=== PATIENT | male | born 1960 | race Caucasian/White ===

== ENCOUNTER 2020-10-14 11:28 | Day surgery (SDC) | payer OTHER, SELFPAY ==
[2020-10-08 12:26] VITALS: BMI 36.9
--- NOTE | 2020-10-13 08:27 | HO.ANESPROP2 ---
Documented by User: Jolene Malik 10/13/20 08:27 HPI - Anesthesia Eval Consult details Narrative: 60yo M for Colonoscopy [facility] Past Medical History Medical History Fatty liver HTN (hypertension) Surgical History Surgical History History of umbilical hernia repair Hx laparoscopic cholecystectomy Hx of colonoscopy Social History Social History Are you a primary care management specialist to a significant other at home: No Do you presently have visiting nurse or other home services: No Smoking Status: Current every day smoker Packs Per Day: 0.75 Cigarettes Per Day: 15.0 Smoked in Last 30 Days: Yes Have you been hit, kicked, punched, or otherwise hurt by someone within the past year? If so, by whom?: No Are you DNR?: No Advance Directives: No Advance Directives Information Provided: No Advance Directives on File: No Recently lost weight without trying: No Eating poorly because of decreased appetite: No Nutrition Risks: No Nutritional Risk Meds Allergies Allergy/AdvReac Type Severity Reaction Status Date / Time No Known Allergies Allergy Unverified 10/08/20 12:25 Home Medications Medication Instructions Recorded Confirmed Last Taken Type No Known Home Meds 10/08/20 10/08/20 Unknown History Exam Exam Date and Time: October 13, 2020 0827 Height,Weight and Vital Signs: Height 5 ft 11 in Weight 120.202 kg Assessment and Plan Assessment Anesthesia Assessment: Chart Reviewed Documented by User: Beatrice Pratt 10/14/20 12:43 [facility] Past Medical History Medical History Fatty liver HTN (hypertension) Surgical History Surgical History History of umbilical hernia repair Hx laparoscopic cholecystectomy Hx of colonoscopy Social History Social History Are you a primary care management specialist to a significant other at home: No Do you presently have visiting nurse or other home services: No Smoking Status: Current every day smoker Packs Per Day: 0.75 Cigarettes Per Day: 15.0 Smoked in Last 30 Days: Yes Have you been hit, kicked, punched, or otherwise hurt by someone within the past year? If so, by whom?: No Are you DNR?: No Advance Directives: No Advance Directives Information Provided: No Advance Directives on File: No Recently lost weight without trying: No Eating poorly because of decreased appetite: No Nutrition Risks: No Nutritional Risk Meds Allergies Allergy/AdvReac Type Severity Reaction Status Date / Time No Known Allergies Allergy Unverified 10/08/20 12:25 Home Medications Medication Instructions Recorded Confirmed Last Taken Type No Known Home Meds 10/08/20 10/08/20 Unknown History Exam Airway Mallampati Class: II TM Dist: >3cm Neck ROM: Full Assessment and Plan Assessment Anesthesia Assessment: Anesthesia Plan Discussed and Chart Reviewed Final Anesthetic Review NPO: Yes ASA Class: II Final Preanesthetic Review: No Changes in Pt Med Stat, Meds/Allgs Chart Reviewed, Consent Obtained/Reviewed and Anes Risks/Benef Reviewed Patient Risk: Low Procedure Risk: Low Assessment/Block/Sedation in SS: Assess/Block/Sedation-SS Anesthetic Plan Anesthetic Plan: MAC: Disposition: Standard PACU
[2020-10-14 11:37] VITALS: BP 128/83; PULSE 56; RESP 20; TEMP 36.3; O2SAT 96
[2020-10-14] MEDS: Lactated Ringers 1,000 ML 100 ML IVCONT (12:15)
--- NOTE | 2020-10-14 12:35 | MHC.SHP ---
Pre-Procedural Eval Section A The patient is an INPATIENT: No Changes since office visit: No Cold of Flu in the past 2 weeks, No New Medical Problems, No Changes in Medication and No Patient answered all questions The History & Physical has been completed within 30 days and I have reviewed it.: Yes Section B Chief Complaint: screening Allergies: Allergies Allergy/AdvReac Type Severity Reaction Status Date / Time No Known Allergies Allergy Unverified 10/08/20 12:25 Plan I have reviewed the history and physical and performed a pertinent physical examination on my patient. No changes have occurred unless specified.
--- NOTE | 2020-10-14 13:39 | PM.OP ---
Brief Operative Note Date of Service: 10/14/20 Pre-op diagnosis: screening Post-op diagnosis: same (colon polyps) Procedure: colonoscopy Surgeon: Juan Manuel Larsen Anesthesia: MAC Was an Casework Supervisor used for this Procedure?: No Estimated blood loss (mL): 5 Pathology: other (multiple colon polyps) Condition: stable Disposition: PACU
[2020-10-14 13:40] VITALS: BP 97/56; PULSE 55; RESP 16; TEMP 37.3; O2SAT 98
[2020-10-14 13:55] VITALS: BP 115/80; PULSE 52; RESP 17; TEMP 37.3; O2SAT 98
--- NOTE | 2020-10-14 22:11 | OP_ITS ---
SURGEON: Juan Manuel Larsen MD INDICATIONS: Colon cancer screening and prior history of colon polyps. PREOPERATIVE DIAGNOSIS: POSTOPERATIVE DIAGNOSIS: PROCEDURE PERFORMED: Colonoscopy to the cecum with snare polypectomy and cautery of colon polyps. ESTIMATED BLOOD LOSS: COMPLICATIONS: ANESTHESIA: ASSISTANTS: SPECIMENS: MEDICATIONS: Monitored anesthesia care. DESCRIPTION OF PROCEDURE: The history and physical performed. The risks and benefits of the procedure were explained to the patient. Informed consent was obtained. The patient was placed in left lateral decubitus position. A digital rectal exam was performed and was found to be normal. The Olympus pediatric video colonoscope was introduced into the rectum and advanced to the cecum without difficulty. The cecum was identified by transillumination, palpation, and identification of ileocecal valve. Examination was performed and the scope was removed. He tolerated the procedure well and was taken to recovery area in stable condition. FINDINGS: The terminal ileum was not examined. Multiple colonic polyps were present and removed with snare polypectomy and cauterization using the tip of the snare. In the cecum, were 3 polyps, which were sessile. These were piecemeal resected. However, the edges were difficult to identify because of the sessile nature of the polyps. At 70 cm, were 2 polyps, which were snared. At 60 cm and 35 cm, were 8 to 10 mm polyps, which were removed with a snare. Cauterization with the tip of the snare was used to remove tissue from the cecum. There was sigmoid diverticulosis. There was a large amount of liquid stool, which was washed and suctioned. There was some undigested food was clogged the scope. 1 mg of glucagon was given IV because of peristalsis in the cecum, which made the procedure extended and difficult. Retroflexed examination showed internal hemorrhoids. IMPRESSION: Colon polyps. RECOMMENDATIONS: 1. Follow up the biopsy results. 2. Consider repeat followup examination in 6 to 12 months because of the nature of the cecal polyp to assess for completeness of resection. MD ROMEL Mosher/JOSIL / [id number]
== END 2020-10-14 14:25 | disposition home or self-care (01) ==
PROVIDERS: PCP Physician Assistant Medical; Visit Provider Internal Medicine Gastroenterology
PROC: 0DJD8ZZ Inspection of Lower Intestinal Tract, Via Natural or Artificial Opening Endoscopic (ICD-10-PCS; CPT 45378; principal; 2020-10-14 12:30)
DX: Z12.11 Encounter for screening for malignant neoplasm of colon (principal); Z86.010 Personal history of colon polyps; K63.5 Polyp of colon; K57.30 Diverticulosis of large intestine without perforation or abscess without bleeding; K64.8 Other hemorrhoids; R19.2 Visible peristalsis; K76.0 Fatty (change of) liver, not elsewhere classified; I10 Essential (primary) hypertension; Z90.49 Acquired absence of other specified parts of digestive tract
CPT/HCPCS: 45385; 45384; 88305; 88341; 88342

== ENCOUNTER 2020-10-15 09:52 | Inpatient (IN) | payer OTHER, SELFPAY ==
[2020-10-15] VITALS (9 sets, daily range): BP systolic 94–119; BP diastolic 60–79; PULSE 56–90; RESP 11–18; TEMP 36.3–37.7; O2SAT 96–99; BMI 36.2
--- NOTE | ~2020-10-15 | CT_ITS ---
EXAMINATION: CT ABDOMEN AND PELVIS WITHOUT AND WITH CONTRAST CLINICAL INFORMATION: GI bleed. COMPARISON: None TECHNIQUE: Multidetector volumetric imaging was performed of the abdomen and pelvis before and after the IV administration of 80 mL of Omnipaque 300 intravenous contrast. Sagittal and coronal reformatted images were obtained on the technologist's workstation. This CT examination was performed using dose optimization techniques as appropriate, variously including the following: *Automated exposure control *Adjustment of mA and/or kV according to patient size (this includes techniques or standardized protocols for targeted exams where dose is matched to indication/reason for exam; i.e. extremities or head) *Use of iterative reconstruction technique DLP: 2114 mGy-cm FINDINGS: LUNG BASES: The lung bases are clear. The heart size is normal. LIVER, GALLBLADDER, AND BILIARY TREE: The liver is normal in size, shape, and attenuation. No focal hepatic lesion or biliary ductal dilatation is present. The gallbladder has been surgically removed. PANCREAS: Unremarkable. SPLEEN: Unremarkable. ADRENAL GLANDS: Unremarkable. KIDNEYS AND URETERS: There are no radiopaque renal calculi seen in the precontrast exam. Postcontrast, both kidney nephrograms are symmetric and normal. There is no cyst, enhancing renal mass or hydronephrosis. Mild perinephric stranding is seen bilaterally. BLADDER: Unremarkable. GASTROINTESTINAL TRACT: There is mild mural thickening involving the ascending colon. On precontrast exam, there is an intraluminal hyperdense soft tissue density seen in the cecal region measuring 37 Hounsfield units. Postcontrast, the same density measures 47 Hounsfield units but no extravasation of contrast seen suspicious for right-sided bleed or hypervascular mass. The internal hyperdensity extends antegradely to the hepatic flexure. There are a few scattered diverticula seen in the descending colon. There is moderate hypodensity also visualized in the sigmoid colon measuring 51 Hounsfield units, likely stool and fluids. The appendix is normal caliber. ABDOMINAL WALL: No significant hernia is appreciated. LYMPH NODES: Normal. VASCULAR: There is aneurysmal dilatation of the distal abdominal aorta measuring 3.2 x 3.2 cm. The common iliac arteries are normal. PELVIC VISCERA: No free air or free fluid seen. The prostate gland is normal size. No abnormal inguinal hernia. There are small lymph nodes in the inguinal region. OSSEOUS STRUCTURES: No lytic or sclerotic process seen. There are degenerative disc changes with vacuum disc phenomena at the L4-L5 and L5-S1 disc levels. There is moderate ventral spondylosis at the L3-L4 disc level and lower dorsal spine. CT/CT abdomen pelvis wo/w con IMPRESSION: Slightly hyperdense soft tissue density in the cecal region on precontrast study which increases in Hounsfield units on postcontrast exam. This may be the site of bleed or a hypervascular lesion in this region. No anil contrast extravasation seen. Recommend colonoscopy directed to this region. There is scattered colonic diverticulosis. The appendix is normal caliber. The gallbladder has been surgically removed.
[2020-10-15 10:24] LABS: MANUAL DIFF FLAG NO
[2020-10-15 10:27] LABS: Basophils Absolute Auto 0.1 X10*3/uL (0.0-0.2); Basophils Percent Auto 0.4 % (0-2); Eosinophils Absolute Auto 0.2 X10*3/uL (0.0-0.4); Eosinophils Percent Auto 1.4 % (0-4); Hematocrit 42.7 % (42-52); Hemoglobin 14.5 g/dl (14.0-18.0); Imm Gran Abs Auto 0.03 X10*3/uL (0.00-0.03); Imm Gran Pct Auto 0.2 % (0.0-0.4); Lymphocytes Absolute Auto 2.4 X10*3/uL (1.2-4.9); Lymphocytes Percent Auto 18.8 % (20-40); Mean Corpuscular Hemoglobin 30.1 pg (27.0-33.0); Mean Corpuscular Volume 88.6 fL (80-98); Mean Platelet Volume 9.6 fL (9.4-12.4); Monocytes Absolute Auto 0.8 X10*3/uL (0.1-1.2); Monocytes Percent Auto 6.4 % (2-11); Neutrophils Absolute Auto 9.3 X10*3/uL (2.0-8.3); Neutrophils Percent Auto 72.8 % (45-73); Platelet Count 233 X10*3/uL (160-400); Red Blood Count 4.82 X10*6/uL (4.60-5.80); Red Cell Distribution Width 13.1 % (11.0-16.0); White Blood Count 12.8 X10*3/uL (4.8-10.8)
[2020-10-15 10:55] LABS: Alanine Aminotransferase 26 U/L (0-40); Albumin Level 4.1 g/dL (3.5-5.0); Alkaline Phosphatase 73 U/L (39-117); Anion Gap 11 (12-20); Aspartate Amino Transferase 23 U/L (5-37); Bilirubin Total 0.8 mg/dL (0.0-1.0); Blood Urea Nitrogen 13 mg/dL (9-16); Calcium 9.9 mg/dL (8.4-10.2); Carbon Dioxide 27 mmol/L (22-29); Chloride 106 mmol/L (96-108); Creatinine Clr Calc Pharmacy 104.2; Estimated Glomerular Filt Rate > 60; Glucose Random 130 mg/dL (60-115); Potassium 4.4 mmol/L (3.3-5.1); Sodium 140 mmol/L (135-145); Total Protein 6.6 g/dL (6.5-8.0)
--- NOTE | 2020-10-15 11:46 | ECG_ITS ---
Test Reason : GI BLEED Blood Pressure : / mmHG Vent. Rate : 067 BPM Atrial Rate : 067 BPM P-R Int : 172 ms QRS Dur : 088 ms QT Int : 378 ms P-R-T Axes : 031 -32 003 degrees QTc Int : 399 ms Normal sinus rhythm Left axis deviation Abnormal ECG No previous ECGs available Referred By: Adriana Walker Electronically Signed By:EILEEN HARRIS MD
[2020-10-15 11:58] LABS: Prothrombin Time 12.3 SEC (10.8-13.0)
[2020-10-15 12:01] LABS: Partial Thromboplastin Time 34.7 SEC (24.1-38.0)
[2020-10-15 12:06] LABS: Bilirubin Direct 0.3 mg/dL (0.0-0.5); Magnesium 2.1 mg/dL (1.6-2.6)
[2020-10-15] MEDS: 0.9 % Sodium Chloride 1,000 ML 999 ML IVCONT (12:33)
[2020-10-15 12:39] LABS: OBS Int Ctl Valid YES; OBS1 POSITIVE (NEGATIVE)
[2020-10-15 13:01] LABS: COVID-19 Test Negative (Negative); IDNOW Serial# 9DD0AD1C
[2020-10-15] MEDS: iohexoL 350 MG/ML 100 ML INFUS..BTL IV (13:19)
--- NOTE | 2020-10-15 14:48 | ED.GIBLEED ---
HPI - GI Bleed General Chief complaint: GI Bleed Stated complaint: bleeding after colonoscopy Time Seen by Provider: 10/15/20 11:41 Source: patient Mode of arrival: ambulatory Limitations: no limitations History of Present Illness HPI Narrative: 60-year-old male with a past medical history of fatty liver and hypertension presenting to the ED with complaints of bright red rectal bleeding with associated dizziness worse with standing since this morning. Reports that he had a colonoscopy yesterday by Dr. Larsen and was told that he had polyps although unsure about any of the other results. Denies any headaches, change of vision, chest pain, shortness of breath, palpitations, dyspnea on exertion, orthopnea, black or bloody emesis, nausea/vomiting, abdominal pain, back pain, constipation, dysuria or hematuria, lower extremity edema or calf tenderness or any other symptoms complaints or concerns at this time. MD complaint: blood streaked emesis, blood on toilet paper and gross hematochezia Onset (ago): day(s) (Started today) Pain Consistency: constant Severity: moderate Relieving factors: none Exacerbating factors: bowel movement Context: other (Recent colonoscopy yesterday by Dr. Larsen) Associated symptoms: denies other symptoms Treatments Prior to Arrival: none Related Data Home Medications Medication Instructions Recorded Confirmed No Known Home Meds 10/08/20 10/08/20 Allergies Allergy/AdvReac Type Severity Reaction Status Date / Time No Known Allergies Allergy Verified 10/15/20 10:05 Review of Systems Review of Systems: Constitutional : No Weight loss, No Fever, No Chills, No Night Sweats, No Fatigue, NoMalaise ENT/Mouth: No ear pain, No sore throat, No Difficulty swallowing Cardiovascular : No Chest Pain, No SOB, No Dyspnea on Exertion, No Orthopnea, NoEdema, No Palpitations Respiratory : No Cough, No Sputum, No Wheezing, No Dyspnea Gastrointestinal : positive diarrhea/blood streak stool/gross hematochezia, No Nausea, No Vomiting, No abdominal pain, No blood streaked emesis, No coffee-ground emesis, No Melena Genitourinary : No irregular bleeding, No Dysuria, No Urinary Frequency, No Hematuria,No Urinary Incontinence, No Urgency, No Flank Pain Musculoskeletal : No joint pain, No Myalgias, No Joint Swelling Skin : No Skin Lesions, No rash Neuro : Positive dizziness with standing, No Weakness, No Numbness, No Paresthesias, No Loss of Consciousness, No Headache Psych : No Social Issues, Heme/Lymph: No Bruising, No Bleeding,No Lymphadenopathy Endocrine : No Polyuria, No Polydipsia, No Temperature Intolerance Yes all other systems are reviewed and are negative [facility] Past Medical History Attestation statement: The following information was validated with the patient. Medical History Fatty liver HTN (hypertension) Surgical History History of umbilical hernia repair Hx laparoscopic cholecystectomy Hx of colonoscopy Social History Social History Are you a primary day care aide to a significant other at home: No Do you presently have visiting nurse or other home services: No Alcohol intake: never Smoking Status: Current every day smoker Packs Per Day: 0.75 Cigarettes Per Day: 15.0 Use of substances other than those prescribed or required for medical reasons: No Advance Directives: No Advance Directives Information Provided: No Physical Exam Vital Signs: Vital Signs: Last Vital Signs Temp 98.5 F 10/15/20 15:51 Pulse 61 10/15/20 15:51 Resp 15 10/15/20 15:51 BP 119/69 10/15/20 15:51 Pulse Ox 99 10/15/20 15:51 Body Mass Index 36.2 vital signs have been reviewed as normal and appeared to be correct. Blood pressure normal. Heart rate normal. Respiration rate normal. Temperature normal. Oxygen saturation normal. Appearance: Alert. Oriented X3. No acute distress. Head: Normal external exam. Normocephalic. Eyes: PERRLA. EOMI. Conjunctiva and sclera normal. Eyelids normal. ENT: Pharynx normal. Uvula midline. Moist mucous membranes. No trismus noted. No drooling noted. No muffled voice noted. Neck: Normal inspection. Neck supple. FROM. No adenopathy. No meningeal signs. CVS: Normal heart rate and rhythm. Heart sound normal. No murmurs noted. Pulses normal throughout. Respiratory: No respiratory distress. Painless inspiration. Breath sounds normal. No wheezes/rales/rhonchi noted. Chest nontender. No accessory muscle usage noted or decreased air movement noted. Abdomen: Soft and nontender. Nondistended. No guarding. No rigidity. Bowel sounds normal in all 4 quadrants. No distention noted. No organomegaly noted. No visible injury noted. No rebound tenderness. Negative Rovsing sign. Negative obturator's sign. Negative psoas sign. Negative Hayes sign. : Chaperoned by JEANNINE Corbett. No external or internal hemorrhoids. Normal sphincter tone. Patient has bright red blood on rectal exam. Stool occult is positive. Back: No CVA tenderness. Full range of motion noted. Skin: Skin warm and dry. Normal skin color. Normal skin turgor. No rashes/lesions/lacerations noted. Extremities: Extremities exhibit normal range of motion. Extremities nontender. Neuro: Oriented X 3. No motor deficit. No sensory deficit. Reflexes normal. Normal steady gait. Course Course Course Narrative: 14pm - patient had 2 CBCs drawn 1 when he arrived and then another 6 hours later and it appears that his hemoglobin and hematocrit have dropped from 14.5/42.8 now at 12.3/36.4. All other labs are within normal limits. Patient is stool occult positive. COVID negative. - Dr. freeman came down and seen the patient's CT scan and he reports that most likely the patient has post colonoscopy bleed he reports that the patient should be admitted to the hospitalist service. Therefore consulted with Dr. Haro at this time the hospitalist for admission for further evaluation treatment. Patient understands agrees with this plan. Reevaluation(s) Reevaluation #1: - I spoke to Dr. Larsen and both Dr. Haro they are agreeable to admitting the patient. The plan will be for the patient to be clean out with GoLYTELY tonight he will be kept NPO. Then he will go for a repeat colonoscopy tomorrow and he will have serial H&H's. Patient understands agrees with this plan. Will continue to monitor until he is admitted. Time: 16:30 MDM - GI Bleed [facility] Narrative Medical decision making narrative: 10:07am - 60-year-old male with a past medical history of fatty liver and hypertension presenting to the ED with complaints of bright red rectal bleeding with associated dizziness worse with standing since this morning after colonoscopy by Dr. Larsen yesterday.. Plan: Labs, stool occult, type and screen, EKG, CT scan of abdomen and pelvis with and without IV contrast then re-evaluate. Medical Records Attestation: I reviewed the patient's medical records. Lab Data Attestation: I reviewed the patient's lab results. Result diagrams: 10/15/20 15:59 10/15/20 10:15 Labs: Lab Results 10/15/20 10/15/20 10/15/20 Range/Units 10:15 10:15 10:15 WBC 12.8 H (4.8-10.8) X10*3/uL RBC 4.82 (4.60-5.80) X10*6/uL Hgb 14.5 (14.0-18.0) g/dl Hct 42.7 (42-52) % MCV 88.6 (80-98) fL MCH 30.1 (27.0-33.0) pg MCHC 34.0 (31.0-36.0) g/dl RDW 13.1 (11.0-16.0) % Plt Count 233 (160-400) X10*3/uL MPV 9.6 (9.4-12.4) fL Immature Gran % (Auto) 0.2 (0.0-0.4) % Neut % (Auto) 72.8 (45-73) % Lymph % (Auto) 18.8 L (20-40) % Clark % (Auto) 6.4 (2-11) % Eos % (Auto) 1.4 (0-4) % Baso % (Auto) 0.4 (0-2) % Lymph # (Auto) 2.4 (1.2-4.9) X10*3/uL Clark # (Auto) 0.8 (0.1-1.2) X10*3/uL Eos # (Auto) 0.2 (0.0-0.4) X10*3/uL Baso # (Auto) 0.1 (0.0-0.2) X10*3/uL Abs Immat Gran (auto) 0.03 (0.00-0.03) X10*3/uL Absolute Neuts (auto) 9.3 H (2.0-8.3) X10*3/uL Absolute Nucleated RBC 0.000 (0.0-0.012) X10*3/uL Nucleated RBC % (auto) 0.0 (0.0-0.2) /100WBC Hold Purple Top SEE NOTE PT 12.3 (10.8-13.0) SEC INR 1.0 (0.9-1.1) APTT 34.7 (24.1-38.0) SEC Hold Blue Top SEE NOTE Sodium (135-145) mmol/L Potassium (3.3-5.1) mmol/L Chloride (96-108) mmol/L Carbon Dioxide (22-29) mmol/L Anion Gap (12-20) BUN (9-16) mg/dL Creatinine (0.5-1.4) mg/dL Estim Creat Clear Calc Estimated GFR Random Glucose (60-115) mg/dL Calcium (8.4-10.2) mg/dL Magnesium (1.6-2.6) mg/dL Total Bilirubin (0.0-1.0) mg/dL Direct Bilirubin (0.0-0.5) mg/dL AST (5-37) U/L ALT (0-40) U/L Alkaline Phosphatase (39-117) U/L Total Protein (6.5-8.0) g/dL Albumin (3.5-5.0) g/dL Stool Occult Blood (NEGATIVE) COVID-19 (JERAD) (Negative) COVID-19 Clin Com Blood Type Antibody Screen 10/15/20 10/15/20 10/15/20 Range/Units 10:15 12:29 12:29 WBC (4.8-10.8) X10*3/uL RBC (4.60-5.80) X10*6/uL Hgb (14.0-18.0) g/dl Hct (42-52) % MCV (80-98) fL MCH (27.0-33.0) pg MCHC (31.0-36.0) g/dl RDW (11.0-16.0) % Plt Count (160-400) X10*3/uL MPV (9.4-12.4) fL Immature Gran % (Auto) (0.0-0.4) % Neut % (Auto) (45-73) % Lymph % (Auto) (20-40) % Clark % (Auto) (2-11) % Eos % (Auto) (0-4) % Baso % (Auto) (0-2) % Lymph # (Auto) (1.2-4.9) X10*3/uL Clark # (Auto) (0.1-1.2) X10*3/uL Eos # (Auto) (0.0-0.4) X10*3/uL Baso # (Auto) (0.0-0.2) X10*3/uL Abs Immat Gran (auto) (0.00-0.03) X10*3/uL Absolute Neuts (auto) (2.0-8.3) X10*3/uL Absolute Nucleated RBC (0.0-0.012) X10*3/uL Nucleated RBC % (auto) (0.0-0.2) /100WBC Hold Purple Top PT (10.8-13.0) SEC INR (0.9-1.1) APTT (24.1-38.0) SEC Hold Blue Top Sodium 140 (135-145) mmol/L Potassium 4.4 (3.3-5.1) mmol/L Chloride 106 (96-108) mmol/L Carbon Dioxide 27 (22-29) mmol/L Anion Gap 11 L (12-20) BUN 13 (9-16) mg/dL Creatinine 0.96 (0.5-1.4) mg/dL Estim Creat Clear Calc 104.2 Estimated GFR > 60 Random Glucose 130 H (60-115) mg/dL Calcium 9.9 (8.4-10.2) mg/dL Magnesium 2.1 (1.6-2.6) mg/dL Total Bilirubin 0.8 (0.0-1.0) mg/dL Direct Bilirubin 0.3 (0.0-0.5) mg/dL AST 23 (5-37) U/L ALT 26 (0-40) U/L Alkaline Phosphatase 73 (39-117) U/L Total Protein 6.6 (6.5-8.0) g/dL Albumin 4.1 (3.5-5.0) g/dL Stool Occult Blood POSITIVE (NEGATIVE) COVID-19 (JERAD) Negative (Negative) COVID-19 Clin Com See Note Blood Type Antibody Screen 10/15/20 10/15/20 Range/Units 13:52 15:59 WBC 11.1 H (4.8-10.8) X10*3/uL RBC 4.09 L (4.60-5.80) X10*6/uL Hgb 12.3 L (14.0-18.0) g/dl Hct 36.4 L (42-52) % MCV 89.0 (80-98) fL MCH 30.1 (27.0-33.0) pg MCHC 33.8 (31.0-36.0) g/dl RDW 13.2 (11.0-16.0) % Plt Count 191 (160-400) X10*3/uL MPV 9.6 (9.4-12.4) fL Immature Gran % (Auto) 0.3 (0.0-0.4) % Neut % (Auto) 67.3 (45-73) % Lymph % (Auto) 25.0 (20-40) % Clark % (Auto) 5.8 (2-11) % Eos % (Auto) 1.2 (0-4) % Baso % (Auto) 0.4 (0-2) % Lymph # (Auto) 2.8 (1.2-4.9) X10*3/uL Clark # (Auto) 0.7 (0.1-1.2) X10*3/uL Eos # (Auto) 0.1 (0.0-0.4) X10*3/uL Baso # (Auto) 0.1 (0.0-0.2) X10*3/uL Abs Immat Gran (auto) 0.03 (0.00-0.03) X10*3/uL Absolute Neuts (auto) 7.5 (2.0-8.3) X10*3/uL Absolute Nucleated RBC 0.000 (0.0-0.012) X10*3/uL Nucleated RBC % (auto) 0.0 (0.0-0.2) /100WBC Hold Purple Top PT (10.8-13.0) SEC INR (0.9-1.1) APTT (24.1-38.0) SEC Hold Blue Top Sodium (135-145) mmol/L Potassium (3.3-5.1) mmol/L Chloride (96-108) mmol/L Carbon Dioxide (22-29) mmol/L Anion Gap (12-20) BUN (9-16) mg/dL Creatinine (0.5-1.4) mg/dL Estim Creat Clear Calc Estimated GFR Random Glucose (60-115) mg/dL Calcium (8.4-10.2) mg/dL Magnesium (1.6-2.6) mg/dL Total Bilirubin (0.0-1.0) mg/dL Direct Bilirubin (0.0-0.5) mg/dL AST (5-37) U/L ALT (0-40) U/L Alkaline Phosphatase (39-117) U/L Total Protein (6.5-8.0) g/dL Albumin (3.5-5.0) g/dL Stool Occult Blood (NEGATIVE) COVID-19 (JERAD) (Negative) COVID-19 Clin Com Blood Type AB Positive Antibody Screen NEGATIVE Imaging Data CT scan of abdomen pelvis with and without contrast: Attestation: I personally reviewed and interpreted this imaging study as follows: Radiologist's impression: FINDINGS: LUNG BASES: The lung bases are clear. The heart size is normal. LIVER, GALLBLADDER, AND BILIARY TREE: The liver is normal in size, shape, and attenuation. No focal hepatic lesion or biliary ductal dilatation is present. The gallbladder has been surgically removed. PANCREAS: Unremarkable. SPLEEN: Unremarkable. ADRENAL GLANDS: Unremarkable. KIDNEYS AND URETERS: There are no radiopaque renal calculi seen in the precontrast exam. Postcontrast, both kidney nephrograms are symmetric and normal. There is no cyst, enhancing renal mass or hydronephrosis. Mild perinephric stranding is seen bilaterally. BLADDER: Unremarkable. GASTROINTESTINAL TRACT: There is mild mural thickening involving the ascending colon. On precontrast exam, there is an intraluminal hyperdense soft tissue density seen in the cecal region measuring 37 Hounsfield units. Postcontrast, the same density measures 47 Hounsfield units but no extravasation of contrast seen suspicious for right-sided bleed or hypervascular mass. The internal hyperdensity extends antegradely to the hepatic flexure. There are a few scattered diverticula seen in the descending colon. There is moderate hypodensity also visualized in the sigmoid colon measuring 51 Hounsfield units, likely stool and fluids. The appendix is normal caliber. ABDOMINAL WALL: No significant hernia is appreciated. LYMPH NODES: Normal. VASCULAR: There is aneurysmal dilatation of the distal abdominal aorta measuring 3.2 x 3.2 cm. The common iliac arteries are normal. PELVIC VISCERA: No free air or free fluid seen. The prostate gland is normal size. No abnormal inguinal hernia. There are small lymph nodes in the inguinal region. OSSEOUS STRUCTURES: No lytic or sclerotic process seen. There are degenerative disc changes with vacuum disc phenomena at the L4-L5 and L5-S1 disc levels. There is moderate ventral spondylosis at the L3-L4 disc level and lower dorsal spine. CT/CT abdomen pelvis wo/w con IMPRESSION: Slightly hyperdense soft tissue density in the cecal region on precontrast study which increases in Hounsfield units on postcontrast exam. This may be the site of bleed or a hypervascular lesion in this region. No anil contrast extravasation seen. Recommend colonoscopy directed to this region. There is scattered colonic diverticulosis. The appendix is normal caliber. The gallbladder has been surgically removed. ECG Data Attestation: I personally reviewed and interpreted this ECG as follows: ECG interpretation date: 10/15/20 ECG interpretation time: 12:05 Interpretation: Normal sinus rhythm with ventricular rate of 67 with left axis deviation no acute ischemic changes are noted. No prior EKGs in our system To compare to at this time. Critical Care Time Critical Care Time Critical Care Time: Yes Total Critical Care Time: 60 Attestation: I personally attest to this time spent taking care of the patient Discharge Plan Discharge Clinical Impression: Acute GI bleeding Patient Disposition: Admitted As Inpatient
[2020-10-15 16:04] LABS: MANUAL DIFF FLAG NO
[2020-10-15 16:06] LABS: Basophils Absolute Auto 0.1 X10*3/uL (0.0-0.2); Basophils Percent Auto 0.4 % (0-2); Eosinophils Absolute Auto 0.1 X10*3/uL (0.0-0.4); Eosinophils Percent Auto 1.2 % (0-4); Hematocrit 36.4 % (42-52); Hemoglobin 12.3 g/dl (14.0-18.0); Imm Gran Abs Auto 0.03 X10*3/uL (0.00-0.03); Imm Gran Pct Auto 0.3 % (0.0-0.4); Lymphocytes Absolute Auto 2.8 X10*3/uL (1.2-4.9); Mean Corpuscular HGB Conc 33.8 g/dl (31.0-36.0); Mean Corpuscular Hemoglobin 30.1 pg (27.0-33.0); Mean Platelet Volume 9.6 fL (9.4-12.4); Monocytes Absolute Auto 0.7 X10*3/uL (0.1-1.2); Monocytes Percent Auto 5.8 % (2-11); Neutrophils Absolute Auto 7.5 X10*3/uL (2.0-8.3); Neutrophils Percent Auto 67.3 % (45-73); Platelet Count 191 X10*3/uL (160-400); Red Blood Count 4.09 X10*6/uL (4.60-5.80); Red Cell Distribution Width 13.2 % (11.0-16.0); White Blood Count 11.1 X10*3/uL (4.8-10.8)
--- NOTE | 2020-10-15 16:17 | PM.EVENT ---
Event Note Date of Service: 10/15/20 Event Note: GI consult dictated Presentation is c/w post polypectomy bleeding, likely from cecum. Currently hemodynamically stable. Plan is for admission, monitor hematocrit, bowel prep and colonoscopy tomorrow to reassess bleeding site and hemostatic therapy if necessary. He understands risks and benefits and agrees to proceed. Discussed with Adriana Walker.
--- NOTE | 2020-10-15 17:16 | PM.IMHP ---
History of Present Illness Date of Service: 10/15/20 Chief Complaint: gi bleed, dizziness This is a relatively healthy 60-year-old male with no significant past medical history presents to the hospital with complaints of multiple episodes of bright red blood per rectum. Patient reports that he underwent a screening colonoscopy yesterday and had several polyps which were biopsied. He felt well post procedure and in fact tolerated dinner last night. 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 He reports that between 07:00 and 08:30 he had 3 rounds of bright red blood per rectum and so he decided that he was going to go home. His bleeding continued and so he presented to the emergency room. After arriving to the emergency room he had several more episodes of bright red blood per rectum. His hemoglobin which was 14.5 upon arrival dropped to around 12. He underwent a CT scan of the abdomen which showed a possible bleed in the region of the cecum. Other than his rectal breathing the patient also endorses dizziness particularly when changing positions. He reports that his symptoms improved post IV fluids. He was evaluated by Dr. Larsen from Gastroenterology with the plans to have another bowel prep and serial H&H monitoring with plans for colonoscopy in the morning. Review of Systems Review of Systems: General - denies fevers or chills, denies weakness or fatigue HEENT - denies blurred vision, denies headache, denies sore throat Cardiovascular - no chest pain, +dizziness Respiratory - denies shortness of breath, coughing, wheezing Gastrointestinal - GI bleeding -- multiple episodes, no pain - denies flank pain, denies dysuria, denies frequency or urgency Musculoskeletal - denies back pain, denies hip pain, denies knee pain, denies shoulder pain Neurological - denies any focal weakness or numbness Skin, denies any bruising or redness Psychiatric - denies any suicidal ideation, hallucinations, homicidal ideation Endocrinology - denies intolerance to hot / cold temperatures [facility] Medical History Fatty liver HTN (hypertension) Surgical History History of umbilical hernia repair Hx laparoscopic cholecystectomy Hx of colonoscopy Social History Are you a primary pet care technician to a significant other at home: No Do you presently have visiting nurse or other home services: No Alcohol intake: never Smoking Status: Current every day smoker Packs Per Day: 0.75 Cigarettes Per Day: 15.0 Use of substances other than those prescribed or required for medical reasons: No Advance Directives: No Advance Directives Information Provided: No Meds Allergies Allergy/AdvReac Type Severity Reaction Status Date / Time No Known Allergies Allergy Verified 10/15/20 10:05 Active Medications: Current Medications Generic Name Dose Route Start Last Admin Trade Name Freq PRN Reason Stop Dose Admin Pharmacy Consult 1 each 10/15/20 16:02 Consult Rx Perform Med Rec MISCELLANE ONCE PRN Consult order Home Medications Medication Instructions Recorded Confirmed Last Taken Type No Known Home Meds 10/08/20 10/15/20 Unknown History Physical Exam Vital Signs and Narrative: Vital Signs: Last Vital Signs Temp 98.5 F 10/15/20 15:51 Pulse 61 10/15/20 15:51 Resp 15 10/15/20 15:51 BP 119/69 10/15/20 15:51 Pulse Ox 99 10/15/20 15:51 Body Mass Index 36.2 Const: Other: Constitutional - Awake and Alert, No apparent distress Eyes - PERRLA, EOMI Cardiovascular - S1S2, RRR, No edema Respiratory - Normal lung expansion, Normal respiratory effort, No respiratory distress, CTA bilaterally Gastrointestinal - NT / ND; +BS; No rebound or guarding - No CVA tenderness Extremities - no calf tenderness bilaterally, no swelling Musculoskeletal - Normal inspection, normal ROM Skin - Warm/Dry Neurological - Alert & oriented x3, No focal deficit Psychological - Appropriate affect Results Labs CBC and Chem 7: 10/15/20 15:59 10/15/20 10:15 Labs: Laboratory Results - last 24 hr 10/15/20 10/15/20 10/15/20 10:15 10:15 10:15 MCV 88.6 MCH 30.1 MCHC 34.0 RDW 13.1 Plt Count 233 MPV 9.6 Immature Gran % (Auto) 0.2 Neut % (Auto) 72.8 Lymph % (Auto) 18.8 L [place] % (Auto) 6.4 Eos % (Auto) 1.4 Baso % (Auto) 0.4 Lymph # (Auto) 2.4 [place] # (Auto) 0.8 Eos # (Auto) 0.2 Baso # (Auto) 0.1 Abs Immat Gran (auto) 0.03 Absolute Neuts (auto) 9.3 H Absolute Nucleated RBC 0.000 Nucleated RBC % (auto) 0.0 Hold Purple Top SEE NOTE PT 12.3 INR 1.0 APTT 34.7 Hold Blue Top SEE NOTE Anion Gap Estim Creat Clear Calc Estimated GFR Random Glucose Calcium Magnesium Total Bilirubin Direct Bilirubin AST ALT Alkaline Phosphatase Total Protein Albumin Stool Occult Blood COVID-19 (JERAD) COVID-Re.Mu Com Blood Type Antibody Screen 10/15/20 10/15/20 10/15/20 10:15 12:29 12:29 MCV MCH MCHC RDW Plt Count MPV Immature Gran % (Auto) Neut % (Auto) Lymph % (Auto) [place] % (Auto) Eos % (Auto) Baso % (Auto) Lymph # (Auto) [place] # (Auto) Eos # (Auto) Baso # (Auto) Abs Immat Gran (auto) Absolute Neuts (auto) Absolute Nucleated RBC Nucleated RBC % (auto) Hold Purple Top PT INR APTT Hold Blue Top Anion Gap 11 L Estim Creat Clear Calc 104.2 Estimated GFR > 60 Random Glucose 130 H Calcium 9.9 Magnesium 2.1 Total Bilirubin 0.8 Direct Bilirubin 0.3 AST 23 ALT 26 Alkaline Phosphatase 73 Total Protein 6.6 Albumin 4.1 Stool Occult Blood POSITIVE COVID-19 (JERAD) Negative [employer] See Note Blood Type Antibody Screen 10/15/20 10/15/20 13:52 15:59 MCV 89.0 MCH 30.1 MCHC 33.8 RDW 13.2 Plt Count 191 MPV 9.6 Immature Gran % (Auto) 0.3 Neut % (Auto) 67.3 Lymph % (Auto) 25.0 [place] % (Auto) 5.8 Eos % (Auto) 1.2 Baso % (Auto) 0.4 Lymph # (Auto) 2.8 [place] # (Auto) 0.7 Eos # (Auto) 0.1 Baso # (Auto) 0.1 Abs Immat Gran (auto) 0.03 Absolute Neuts (auto) 7.5 Absolute Nucleated RBC 0.000 Nucleated RBC % (auto) 0.0 Hold Purple Top PT INR APTT Hold Blue Top Anion Gap Estim Creat Clear Calc Estimated GFR Random Glucose Calcium Magnesium Total Bilirubin Direct Bilirubin AST ALT Alkaline Phosphatase Total Protein Albumin Stool Occult Blood COVID-19 (JERAD) COVID-19 Clin Com Blood Type AB Positive Antibody Screen NEGATIVE Imaging Radiologist's Impressions: Impressions Abdomen/Pelvis CT 10/15/20 11:46 IMPRESSION: Slightly hyperdense soft tissue density in the cecal region on precontrast study which increases in Hounsfield units on postcontrast exam. This may be the site of bleed or a hypervascular lesion in this region. No anil contrast extravasation seen. Recommend colonoscopy directed to this region. There is scattered colonic diverticulosis. The appendix is normal caliber. The gallbladder has been surgically removed. Assessment and Plan (1) Acute GI bleeding: Status: Acute This is a 60-year-old male with no significant past medical history who underwent a screening colonoscopy on 10/14/2020 and now returns the next day with bright red blood per rectum most likely consistent with bleeding from his polypectomy site. He will be admitted for further workup. 1. Acute blood loss anemia secondary to lower GI bleed symptomatic with dizzness In the setting of recent polypectomy H&H q.6 hours Colon tonight with plans for colonoscopy tomorrow GI has already seen the patient P.o. IV fluids 2. Tobacco use disorder In are T with patch Tobacco cessation has been encouraged to the patient Full code DVT prophylaxis, mechanical due to GI bleed
[2020-10-15] MEDS: PEG 3350/Na Sulf,Bicarb,Cl/KCL 4,000 ML SOLN.RECON 4000 ML PO (19:27)
[2020-10-15] MEDS: Dextrose 5 % and 0.45 % NaCl 1,000 ML 100 ML IVCONT (20:05)
[2020-10-15 20:13] LABS: Hemoglobin 11.3 g/dl (14.0-18.0)
--- NOTE | 2020-10-15 20:21 | PC.NURSE ---
PT AMBULATORY TO BATHROOM WITH STEADY GAIT TO VOID. JUSTINE MOTA
--- NOTE | 2020-10-15 22:43 | CONS_ITS ---
DATE OF SERVICE: 10/15/2020 REFERRING PHYSICIAN: GARDENIA Hodge REASON FOR CONSULTATION: GI bleeding. HISTORY OF PRESENT ILLNESS: The patient is a pleasant 60-year-old man, known to me from evaluation. He underwent colonoscopy yesterday with removal of multiple colonic polyps including 3 sessile cecal polyps, which were piecemeal resected. Other polyps at 70 cm, 60 cm, and 35 cm were also resected. Cauterization was used in the cecum to remove tissue from the base of the polyp as well. He did well following the procedure until this morning, when he developed the urge to move his bowels at work and passed bright red blood per rectum. This happened twice, and he did have some slight lightheadedness, but did not have syncope. He presented to the emergency room, where he was evaluated and was noted to be hemodynamically stable. Laboratory studies were obtained, which showed a hematocrit of 42.7. He did get IV fluid, and a repeat hematocrit 5 hours later was 36.4. He reports his most recent bowel movement showed darker red blood and clots. CT scanning was obtained, which is reviewed and this is suggestive of possible right-sided GI bleed without anil contrast extravasation. The patient has no complaints of abdominal pain. PAST MEDICAL HISTORY: 1. Colon polyps. 2. Hypertension. 3. Elevated blood sugar. 4. Fatty liver. 5. Abdominal hernia repair. 6. Cholecystectomy. CURRENT MEDICATIONS: None. ALLERGIES: NONE. FAMILY HISTORY: This is reviewed with the patient and is negative for colon cancer or polyps. SOCIAL HISTORY: Tobacco use is positive. Alcohol use is negative. He works in construction. REVIEW OF SYSTEMS: SKIN: No pruritus. HEENT: Negative. CARDIOPULMONARY: No shortness of breath or chest pain. GASTROINTESTINAL: As above. GENITOURINARY: Negative. NEUROPSYCHIATRIC: Negative. PHYSICAL EXAMINATION: GENERAL: A pleasant male, lying comfortably in bed. VITAL SIGNS: Reviewed in the electronic medical record and are stable. SKIN: Anicteric. HEENT: No scleral icterus. NECK: Without lymphadenopathy or thyromegaly. LUNGS: Clear. HEART: Regular rate and rhythm. S1, S2. No murmur. ABDOMEN: Soft without focal masses or tenderness. Bowel sounds are present. No organomegaly is noted. EXTREMITIES: Without edema. LABORATORY DATA: Reviewed. IMPRESSION: Gastrointestinal bleeding. This does appear consistent with a post polypectomy gastrointestinal bleed, likely from the polypectomy site in the cecum based on his presentation and the CT scan findings. At this time, he appears hemodynamically stable. He has been scheduled for colonoscopy and will undergo bowel prep. If necessary, hemostatic therapy will be performed at the time of the procedure. He understands risks and benefits of the procedure and agrees to proceed. I would recommend monitoring his hematocrit and following him clinically. Thanks for asking me to see him. I will follow him in the hospital with you. MD ROMEL Mosher/VIANNEY / [id number]
[2020-10-16] VITALS (9 sets, daily range): BP systolic 93–131; BP diastolic 48–71; PULSE 53–80; RESP 16–20; TEMP 36.2–37.7; O2SAT 95–99
[2020-10-16 00:52] LABS: Hematocrit 31.7 % (42-52); Hemoglobin 10.7 g/dl (14.0-18.0)
[2020-10-16] MEDS: Dextrose 5 % and 0.45 % NaCl 1,000 ML 100 ML IVCONT (05:47)
[2020-10-16 06:42] LABS: Hematocrit 32.8 % (42-52)
--- NOTE | 2020-10-16 07:37 | MHC.SHP ---
Pre-Procedural Eval Section A The patient is an INPATIENT: Yes Changes since office visit: No Cold of Flu in the past 2 weeks, No New Medical Problems, No Changes in Medication and No Patient answered all questions The History & Physical has been completed within 30 days and I have reviewed it.: Yes Section B Chief Complaint: Acute blood loss Anemia Allergies: Allergies Allergy/AdvReac Type Severity Reaction Status Date / Time No Known Allergies Allergy Verified 10/15/20 10:05 Plan I have reviewed the history and physical and performed a pertinent physical examination on my patient. No changes have occurred unless specified.
[2020-10-16] MEDS: Nicotine 21 MG PATCH.TD24 TRANSDERMA (07:42)
--- NOTE | 2020-10-16 09:28 | MHC.CM.PN ---
CM met with patient at the bedside who reports he is independent, drives and works multimedia developer in construction. Patient does not have a HCP and declines filling one out today. Discussed discharge plan, home no services. will provide transportation. CM will continue to follow patient for discharge needs.
--- NOTE | 2020-10-16 11:01 | HO.ANESPROP2 ---
[facility] Active Problems Active Problems: All Active Problems (Updated 10/15/20 @ 15:44 by GARDENIA Hodge) Acute GI bleeding (Acute) HTN (hypertension) (Acute) Fatty liver (Acute) Past Medical History Medical History Fatty liver HTN (hypertension) Surgical History Surgical History History of umbilical hernia repair Hx laparoscopic cholecystectomy Hx of colonoscopy Social History Social History Are you a primary career technology teacher to a significant other at home: No Do you presently have visiting nurse or other home services: No Alcohol intake: never Smoking Status: Current every day smoker Packs Per Day: 0.75 Cigarettes Per Day: 15.0 Use of substances other than those prescribed or required for medical reasons: No Are you DNR?: No Advance Directives: No Advance Directives Information Provided: No Do you have thoughts of harming others: None Do you have a plan to hurt others: No Plan service: Yes Current occupational status: employed Meds Allergies Allergy/AdvReac Type Severity Reaction Status Date / Time No Known Allergies Allergy Verified 10/15/20 10:05 Active Medications: Current Medications Generic Name Dose Route Start Last Admin Trade Name [place] PRN Reason Stop Dose Admin Acetaminophen 650 mg 10/15/20 18:56 Acetaminophen 325 Mg Tablet PO Q6H PRN Pain, Mild (Pain Scale 1-3) Dextrose/Sodium Chloride 1,000 mls @ 100 mls/hr 10/15/20 18:56 10/16/20 09:57 D51/2ns IVCONT 0 mls/hr .Q10H CHRISSY Infusion Nicotine 21 mg 10/16/20 09:00 10/16/20 07:42 Nicotine 21 Mg Patch.Td24 TRANSDERMA 21 mg DAILY CHRISSY Administration Ondansetron HCl 4 mg 10/15/20 18:56 Ondansetron Hcl 4 Mg/2 Ml Vial IVPUSH Q8H PRN Nausea and Vomiting Sodium Chloride 3 ml 10/16/20 00:00 10/16/20 07:41 0.9 % Sodium Chloride Flush 3 Ml Syringe IVFLUSH Not Given QSHIFT [facility] Home Medications Medication Instructions Recorded Confirmed Last Taken Type No Known Home Meds 10/08/20 10/15/20 Unknown History Exam Exam Date and Time: October 16, 2020 1101 Height,Weight and Vital Signs: Height 5 ft 11 in Weight 260 lb Last Vital Signs Temp 97.1 F 10/16/20 10:40 Pulse 53 10/16/20 10:40 Resp 18 10/16/20 10:40 BP 112/69 10/16/20 10:40 Pulse Ox 98 10/16/20 10:40 Pertinent Lab Results Pertinent Lab Results: Laboratory Tests 10/15/20 10/15/20 10/15/20 10:15 10:15 10:15 WBC 12.8 H RBC 4.82 Hgb 14.5 Hct 42.7 MCV 88.6 MCH 30.1 MCHC 34.0 RDW 13.1 Plt Count 233 MPV 9.6 Immature Gran % (Auto) 0.2 Neut % (Auto) 72.8 Lymph % (Auto) 18.8 L [place] % (Auto) 6.4 Eos % (Auto) 1.4 Baso % (Auto) 0.4 Lymph # (Auto) 2.4 [place] # (Auto) 0.8 Eos # (Auto) 0.2 Baso # (Auto) 0.1 Abs Immat Gran (auto) 0.03 Absolute Neuts (auto) 9.3 H Absolute Nucleated RBC 0.000 Nucleated RBC % (auto) 0.0 Hold Purple Top SEE NOTE PT 12.3 INR 1.0 APTT 34.7 Hold Blue Top SEE NOTE Sodium Potassium Chloride Carbon Dioxide Anion Gap BUN Creatinine Estim Creat Clear Calc Estimated GFR Random Glucose Calcium Magnesium Total Bilirubin Direct Bilirubin AST ALT Alkaline Phosphatase Total Protein Albumin Stool Occult Blood COVID-19 (JERAD) COVID-19 Clin Com Blood Type Antibody Screen 10/15/20 10/15/20 10/15/20 10:15 12:29 12:29 WBC RBC Hgb Hct MCV MCH MCHC RDW Plt Count MPV Immature Gran % (Auto) Neut % (Auto) Lymph % (Auto) [place] % (Auto) Eos % (Auto) Baso % (Auto) Lymph # (Auto) [place] # (Auto) Eos # (Auto) Baso # (Auto) Abs Immat Gran (auto) Absolute Neuts (auto) Absolute Nucleated RBC Nucleated RBC % (auto) Hold Purple Top PT INR APTT Hold Blue Top Sodium 140 Potassium 4.4 Chloride 106 Carbon Dioxide 27 Anion Gap 11 L BUN 13 Creatinine 0.96 Estim Creat Clear Calc 104.2 Estimated GFR > 60 Random Glucose 130 H Calcium 9.9 Magnesium 2.1 Total Bilirubin 0.8 Direct Bilirubin 0.3 AST 23 ALT 26 Alkaline Phosphatase 73 Total Protein 6.6 Albumin 4.1 Stool Occult Blood POSITIVE COVID-19 (JERAD) Negative COVID-19 Clin Com See Note Blood Type Antibody Screen 10/15/20 10/15/20 10/15/20 13:52 15:59 20:04 WBC 11.1 H RBC 4.09 L Hgb 12.3 L 11.3 L Hct 36.4 L 33.0 L MCV 89.0 MCH 30.1 MCHC 33.8 RDW 13.2 Plt Count 191 MPV 9.6 Immature Gran % (Auto) 0.3 Neut % (Auto) 67.3 Lymph % (Auto) 25.0 [place] % (Auto) 5.8 Eos % (Auto) 1.2 Baso % (Auto) 0.4 Lymph # (Auto) 2.8 [place] # (Auto) 0.7 Eos # (Auto) 0.1 Baso # (Auto) 0.1 Abs Immat Gran (auto) 0.03 Absolute Neuts (auto) 7.5 Absolute Nucleated RBC 0.000 Nucleated RBC % (auto) 0.0 Hold Purple Top PT INR APTT Hold Blue Top Sodium Potassium Chloride Carbon Dioxide Anion Gap BUN Creatinine Estim Creat Clear Calc Estimated GFR Random Glucose Calcium Magnesium Total Bilirubin Direct Bilirubin AST ALT Alkaline Phosphatase Total Protein Albumin Stool Occult Blood COVID-19 (JERAD) COVID-19 Clin Com Blood Type AB Positive Antibody Screen NEGATIVE 10/16/20 10/16/20 00:48 05:23 WBC RBC Hgb 10.7 L 11.0 L Hct 31.7 L 32.8 L MCV MCH MCHC RDW Plt Count MPV Immature Gran % (Auto) Neut % (Auto) Lymph % (Auto) [place] % (Auto) Eos % (Auto) Baso % (Auto) Lymph # (Auto) [place] # (Auto) Eos # (Auto) Baso # (Auto) Abs Immat Gran (auto) Absolute Neuts (auto) Absolute Nucleated RBC Nucleated RBC % (auto) Hold Purple Top PT INR APTT Hold Blue Top Sodium Potassium Chloride Carbon Dioxide Anion Gap BUN Creatinine Estim Creat Clear Calc Estimated GFR Random Glucose Calcium Magnesium Total Bilirubin Direct Bilirubin AST ALT Alkaline Phosphatase Total Protein Albumin Stool Occult Blood COVID-19 (JERAD) COVID-19 Clin Com Blood Type Antibody Screen Assessment and Plan Assessment Anesthesia Assessment: Anesthesia Plan Discussed and Chart Reviewed Final Anesthetic Review NPO: Yes ASA Class: III Final Preanesthetic Review: No Changes in Pt Med Stat, Meds/Allgs Chart Reviewed, Consent Obtained/Reviewed and Anes Risks/Benef Reviewed Patient Risk: High Procedure Risk: Low Anesthetic Plan Anesthetic Plan: MAC: Disposition: Standard PACU
--- NOTE | 2020-10-16 11:03 | HO.ANESPROP2 ---
HPI - Anesthesia Eval Consult details Narrative: GI bleed PMFSH Active Problems Active Problems: All Active Problems (Updated 10/15/20 @ 15:44 by GARDENIA Hodge) Acute GI bleeding (Acute) HTN (hypertension) (Acute) Fatty liver (Acute) Past Medical History Medical History Fatty liver HTN (hypertension) Surgical History Surgical History History of umbilical hernia repair Hx laparoscopic cholecystectomy Hx of colonoscopy Social History Social History Are you a primary chronic care nurse to a significant other at home: No Do you presently have visiting nurse or other home services: No Alcohol intake: never Smoking Status: Current every day smoker Packs Per Day: 0.75 Cigarettes Per Day: 15.0 Use of substances other than those prescribed or required for medical reasons: No Are you DNR?: No Advance Directives: No Advance Directives Information Provided: No Do you have thoughts of harming others: None Do you have a plan to hurt others: No Plan service: Yes Current occupational status: employed Meds Allergies Allergy/AdvReac Type Severity Reaction Status Date / Time No Known Allergies Allergy Verified 10/15/20 10:05 Active Medications: Current Medications Generic Name Dose Route Start Last Admin Trade Name Freq PRN Reason Stop Dose Admin Acetaminophen 650 mg 10/15/20 18:56 Acetaminophen 325 Mg Tablet PO Q6H PRN Pain, Mild (Pain Scale 1-3) Dextrose/Sodium Chloride 1,000 mls @ 100 mls/hr 10/15/20 18:56 10/16/20 09:57 D51/2ns IVCONT 0 mls/hr .Q10H CHRISSY Infusion Nicotine 21 mg 10/16/20 09:00 10/16/20 07:42 Nicotine 21 Mg Patch.Td24 TRANSDERMA 21 mg DAILY CHRISSY Administration Ondansetron HCl 4 mg 10/15/20 18:56 Ondansetron Hcl 4 Mg/2 Ml Vial IVPUSH Q8H PRN Nausea and Vomiting Sodium Chloride 3 ml 10/16/20 00:00 10/16/20 07:41 0.9 % Sodium Chloride Flush 3 Ml Syringe IVFLUSH Not Given QSHIFT CHRISSY Home Medications Medication Instructions Recorded Confirmed Last Taken Type No Known Home Meds 10/08/20 10/15/20 Unknown History Exam Exam Date and Time: October 16, 2020 1103 Height,Weight and Vital Signs: Height 5 ft 11 in Weight 117.934 kg Last Vital Signs Temp 97.1 F 10/16/20 10:40 Pulse 53 10/16/20 10:40 Resp 18 10/16/20 10:40 BP 112/69 10/16/20 10:40 Pulse Ox 98 10/16/20 10:40 Pertinent Lab Results Pertinent Lab Results: Laboratory Tests 10/15/20 10/15/20 10/15/20 10:15 10:15 10:15 WBC 12.8 H RBC 4.82 Hgb 14.5 Hct 42.7 MCV 88.6 MCH 30.1 MCHC 34.0 RDW 13.1 Plt Count 233 MPV 9.6 Immature Gran % (Auto) 0.2 Neut % (Auto) 72.8 Lymph % (Auto) 18.8 L [place] % (Auto) 6.4 Eos % (Auto) 1.4 Baso % (Auto) 0.4 Lymph # (Auto) 2.4 [place] # (Auto) 0.8 Eos # (Auto) 0.2 Baso # (Auto) 0.1 Abs Immat Gran (auto) 0.03 Absolute Neuts (auto) 9.3 H Absolute Nucleated RBC 0.000 Nucleated RBC % (auto) 0.0 Hold Purple Top SEE NOTE PT 12.3 INR 1.0 APTT 34.7 Hold Blue Top SEE NOTE Sodium Potassium Chloride Carbon Dioxide Anion Gap BUN Creatinine Estim Creat Clear Calc Estimated GFR Random Glucose Calcium Magnesium Total Bilirubin Direct Bilirubin AST ALT Alkaline Phosphatase Total Protein Albumin Stool Occult Blood COVID-19 (JERAD) COVID-19 Clin Com Blood Type Antibody Screen 10/15/20 10/15/20 10/15/20 10:15 12:29 12:29 WBC RBC Hgb Hct MCV MCH MCHC RDW Plt Count MPV Immature Gran % (Auto) Neut % (Auto) Lymph % (Auto) [place] % (Auto) Eos % (Auto) Baso % (Auto) Lymph # (Auto) [place] # (Auto) Eos # (Auto) Baso # (Auto) Abs Immat Gran (auto) Absolute Neuts (auto) Absolute Nucleated RBC Nucleated RBC % (auto) Hold Purple Top PT INR APTT Hold Blue Top Sodium 140 Potassium 4.4 Chloride 106 Carbon Dioxide 27 Anion Gap 11 L BUN 13 Creatinine 0.96 Estim Creat Clear Calc 104.2 Estimated GFR > 60 Random Glucose 130 H Calcium 9.9 Magnesium 2.1 Total Bilirubin 0.8 Direct Bilirubin 0.3 AST 23 ALT 26 Alkaline Phosphatase 73 Total Protein 6.6 Albumin 4.1 Stool Occult Blood POSITIVE COVID-19 (JERAD) Negative COVID-19 Clin Com See Note Blood Type Antibody Screen 10/15/20 10/15/20 10/15/20 13:52 15:59 20:04 WBC 11.1 H RBC 4.09 L Hgb 12.3 L 11.3 L Hct 36.4 L 33.0 L MCV 89.0 MCH 30.1 MCHC 33.8 RDW 13.2 Plt Count 191 MPV 9.6 Immature Gran % (Auto) 0.3 Neut % (Auto) 67.3 Lymph % (Auto) 25.0 [place] % (Auto) 5.8 Eos % (Auto) 1.2 Baso % (Auto) 0.4 Lymph # (Auto) 2.8 [place] # (Auto) 0.7 Eos # (Auto) 0.1 Baso # (Auto) 0.1 Abs Immat Gran (auto) 0.03 Absolute Neuts (auto) 7.5 Absolute Nucleated RBC 0.000 Nucleated RBC % (auto) 0.0 Hold Purple Top PT INR APTT Hold Blue Top Sodium Potassium Chloride Carbon Dioxide Anion Gap BUN Creatinine Estim Creat Clear Calc Estimated GFR Random Glucose Calcium Magnesium Total Bilirubin Direct Bilirubin AST ALT Alkaline Phosphatase Total Protein Albumin Stool Occult Blood COVID-19 (JERAD) COVID-19 Clin Com Blood Type AB Positive Antibody Screen NEGATIVE 10/16/20 10/16/20 00:48 05:23 WBC RBC Hgb 10.7 L 11.0 L Hct 31.7 L 32.8 L MCV MCH MCHC RDW Plt Count MPV Immature Gran % (Auto) Neut % (Auto) Lymph % (Auto) [place] % (Auto) Eos % (Auto) Baso % (Auto) Lymph # (Auto) [place] # (Auto) Eos # (Auto) Baso # (Auto) Abs Immat Gran (auto) Absolute Neuts (auto) Absolute Nucleated RBC Nucleated RBC % (auto) Hold Purple Top PT INR APTT Hold Blue Top Sodium Potassium Chloride Carbon Dioxide Anion Gap BUN Creatinine Estim Creat Clear Calc Estimated GFR Random Glucose Calcium Magnesium Total Bilirubin Direct Bilirubin AST ALT Alkaline Phosphatase Total Protein Albumin Stool Occult Blood COVID-19 (JERAD) COVID-19 Clin Com Blood Type Antibody Screen Airway Mallampati Class: III TM Dist: >3cm Neck ROM: Full Heart: [id number] Lungs: cta b/l Assessment and Plan Assessment Anesthesia Assessment: Anesthesia Plan Discussed, PAT Visit and Chart Reviewed Final Anesthetic Review NPO: Yes ASA Class: III and Emergency Final Preanesthetic Review: No Changes in Pt Med Stat, Meds/Allgs Chart Reviewed, Consent Obtained/Reviewed and Anes Risks/Benef Reviewed Patient Risk: Intermediate Procedure Risk: Low Assessment/Block/Sedation in SS: Assess/Block/Sedation-SS Anesthetic Plan Anesthetic Plan: MAC: and Agree w/ Assess. and Plan Disposition: Standard PACU
--- NOTE | 2020-10-16 11:40 | HO.ANESPROP2 ---
[facility] Active Problems Active Problems: All Active Problems (Updated 10/15/20 @ 15:44 by GARDENIA Hodge) Acute GI bleeding (Acute) HTN (hypertension) (Acute) Fatty liver (Acute) Past Medical History Medical History Fatty liver HTN (hypertension) Surgical History Surgical History History of umbilical hernia repair Hx laparoscopic cholecystectomy Hx of colonoscopy Social History Social History Are you a primary memory care director to a significant other at home: No Do you presently have visiting nurse or other home services: No Alcohol intake: never Smoking Status: Current every day smoker Packs Per Day: 0.75 Cigarettes Per Day: 15.0 Use of substances other than those prescribed or required for medical reasons: No Are you DNR?: No Advance Directives: No Advance Directives Information Provided: No Do you have thoughts of harming others: None Do you have a plan to hurt others: No Plan service: Yes Current occupational status: employed Meds Allergies Allergy/AdvReac Type Severity Reaction Status Date / Time No Known Allergies Allergy Verified 10/15/20 10:05 Active Medications: Current Medications Generic Name Dose Route Start Last Admin Trade Name [place] PRN Reason Stop Dose Admin Acetaminophen 650 mg 10/15/20 18:56 Acetaminophen 325 Mg Tablet PO Q6H PRN Pain, Mild (Pain Scale 1-3) Dextrose/Sodium Chloride 1,000 mls @ 100 mls/hr 10/15/20 18:56 10/16/20 09:57 D51/2ns IVCONT 0 mls/hr .Q10H CHRISSY Infusion Nicotine 21 mg 10/16/20 09:00 10/16/20 07:42 Nicotine 21 Mg Patch.Td24 TRANSDERMA 21 mg DAILY CHRISSY Administration Ondansetron HCl 4 mg 10/15/20 18:56 Ondansetron Hcl 4 Mg/2 Ml Vial IVPUSH Q8H PRN Nausea and Vomiting Sodium Chloride 3 ml 10/16/20 00:00 10/16/20 07:41 0.9 % Sodium Chloride Flush 3 Ml Syringe IVFLUSH Not Given QSHIFT [facility] Home Medications Medication Instructions Recorded Confirmed Last Taken Type No Known Home Meds 10/08/20 10/15/20 Unknown History Exam Exam Date and Time: October 16, 2020 1140 Height,Weight and Vital Signs: Height 5 ft 11 in Weight 117.934 kg Last Vital Signs Temp 97.1 F 10/16/20 10:40 Pulse 53 10/16/20 10:40 Resp 18 10/16/20 10:40 BP 112/69 10/16/20 10:40 Pulse Ox 98 10/16/20 10:40 Pertinent Lab Results Pertinent Lab Results: Laboratory Tests 10/15/20 10/15/20 10/15/20 10:15 10:15 10:15 WBC 12.8 H RBC 4.82 Hgb 14.5 Hct 42.7 MCV 88.6 MCH 30.1 MCHC 34.0 RDW 13.1 Plt Count 233 MPV 9.6 Immature Gran % (Auto) 0.2 Neut % (Auto) 72.8 Lymph % (Auto) 18.8 L [place] % (Auto) 6.4 Eos % (Auto) 1.4 Baso % (Auto) 0.4 Lymph # (Auto) 2.4 [place] # (Auto) 0.8 Eos # (Auto) 0.2 Baso # (Auto) 0.1 Abs Immat Gran (auto) 0.03 Absolute Neuts (auto) 9.3 H Absolute Nucleated RBC 0.000 Nucleated RBC % (auto) 0.0 Hold Purple Top SEE NOTE PT 12.3 INR 1.0 APTT 34.7 Hold Blue Top SEE NOTE Sodium Potassium Chloride Carbon Dioxide Anion Gap BUN Creatinine Estim Creat Clear Calc Estimated GFR Random Glucose Calcium Magnesium Total Bilirubin Direct Bilirubin AST ALT Alkaline Phosphatase Total Protein Albumin Stool Occult Blood COVID-19 (JERAD) COVID-19 Clin Com Blood Type Antibody Screen 10/15/20 10/15/20 10/15/20 10:15 12:29 12:29 WBC RBC Hgb Hct MCV MCH MCHC RDW Plt Count MPV Immature Gran % (Auto) Neut % (Auto) Lymph % (Auto) [place] % (Auto) Eos % (Auto) Baso % (Auto) Lymph # (Auto) [place] # (Auto) Eos # (Auto) Baso # (Auto) Abs Immat Gran (auto) Absolute Neuts (auto) Absolute Nucleated RBC Nucleated RBC % (auto) Hold Purple Top PT INR APTT Hold Blue Top Sodium 140 Potassium 4.4 Chloride 106 Carbon Dioxide 27 Anion Gap 11 L BUN 13 Creatinine 0.96 Estim Creat Clear Calc 104.2 Estimated GFR > 60 Random Glucose 130 H Calcium 9.9 Magnesium 2.1 Total Bilirubin 0.8 Direct Bilirubin 0.3 AST 23 ALT 26 Alkaline Phosphatase 73 Total Protein 6.6 Albumin 4.1 Stool Occult Blood POSITIVE COVID-19 (JERAD) Negative COVID-19 Clin Com See Note Blood Type Antibody Screen 10/15/20 10/15/20 10/15/20 13:52 15:59 20:04 WBC 11.1 H RBC 4.09 L Hgb 12.3 L 11.3 L Hct 36.4 L 33.0 L MCV 89.0 MCH 30.1 MCHC 33.8 RDW 13.2 Plt Count 191 MPV 9.6 Immature Gran % (Auto) 0.3 Neut % (Auto) 67.3 Lymph % (Auto) 25.0 [place] % (Auto) 5.8 Eos % (Auto) 1.2 Baso % (Auto) 0.4 Lymph # (Auto) 2.8 [place] # (Auto) 0.7 Eos # (Auto) 0.1 Baso # (Auto) 0.1 Abs Immat Gran (auto) 0.03 Absolute Neuts (auto) 7.5 Absolute Nucleated RBC 0.000 Nucleated RBC % (auto) 0.0 Hold Purple Top PT INR APTT Hold Blue Top Sodium Potassium Chloride Carbon Dioxide Anion Gap BUN Creatinine Estim Creat Clear Calc Estimated GFR Random Glucose Calcium Magnesium Total Bilirubin Direct Bilirubin AST ALT Alkaline Phosphatase Total Protein Albumin Stool Occult Blood COVID-19 (JERAD) COVID-19 Clin Com Blood Type AB Positive Antibody Screen NEGATIVE 10/16/20 10/16/20 00:48 05:23 WBC RBC Hgb 10.7 L 11.0 L Hct 31.7 L 32.8 L MCV MCH MCHC RDW Plt Count MPV Immature Gran % (Auto) Neut % (Auto) Lymph % (Auto) [place] % (Auto) Eos % (Auto) Baso % (Auto) Lymph # (Auto) [place] # (Auto) Eos # (Auto) Baso # (Auto) Abs Immat Gran (auto) Absolute Neuts (auto) Absolute Nucleated RBC Nucleated RBC % (auto) Hold Purple Top PT INR APTT Hold Blue Top Sodium Potassium Chloride Carbon Dioxide Anion Gap BUN Creatinine Estim Creat Clear Calc Estimated GFR Random Glucose Calcium Magnesium Total Bilirubin Direct Bilirubin AST ALT Alkaline Phosphatase Total Protein Albumin Stool Occult Blood COVID-19 (JERAD) COVID-19 Clin Com Blood Type Antibody Screen Airway Mallampati Class: III TM Dist: >3cm Neck ROM: Full Heart: RRR Lungs: CTA
--- NOTE | 2020-10-16 12:38 | PM.OP ---
Brief Operative Note Date of Service: 10/16/20 Pre-op diagnosis: gi bleed Post-op diagnosis: same Surgeon: Juan Manuel Larsen Was an Food Service Representative used for this Procedure?: No Estimated blood loss (mL): 0 Pathology: none sent Condition: stable Disposition: PACU
--- NOTE | 2020-10-16 12:39 | PM.EVENT ---
Event Note Date of Service: 10/16/20 Event Note: colonoscopy note dictated old blood in colon no active bleeding, but cecal polypectomy site did have a nonbleeding visible vessel epinephrine injection and 5 clips were used to treat the polypectomy site. good hemostasis post procedure. other polypectomy sites were clear. advance diet follow hct d/c in am if stable
--- NOTE | 2020-10-16 13:30 | OP_ITS ---
SURGEON: Juan Manuel Larsen MD INDICATIONS: Post polypectomy bleeding. PREOPERATIVE DIAGNOSIS: POSTOPERATIVE DIAGNOSIS: PROCEDURE PERFORMED: Colonoscopy to the cecum with control of hemorrhage. ESTIMATED BLOOD LOSS: COMPLICATIONS: ANESTHESIA: ASSISTANTS: SPECIMENS: MEDICATIONS: Monitored anesthesia care. DESCRIPTION OF PROCEDURE: History and physical performed. The risks and benefits of the procedure were explained to the patient. Informed consent was obtained. The patient was placed in the left lateral decubitus position. A digital rectal exam was performed and was found to be normal. The Olympus pediatric video colonoscope was introduced into the rectum and advanced to the cecum without difficulty. Abdominal wall pressure was used to assist in advancement of the scope due to looping in the sigmoid. The cecum was identified by transillumination, palpation, and identification of ileocecal valve. Examination was performed and the scope was removed. He tolerated the procedure well and was taken to recovery area in stable condition. FINDINGS: There was old blood throughout the colon. The previous polypectomy site in the cecum was identified. There appeared to be no active bleeding. One area of ulceration did contain what appeared to be a blood vessel that was not actively bleeding. A total of 4 mL of epinephrine 1:10,000 was injected in the vicinity of the polypectomy site and a total of 5 endoscopic clips were deployed to close the defect. There was no bleeding at the termination of the procedure. The remaining polypectomy sites were identified with no active bleeding or visible vessel identified either at any site. There was one 6 mm polyp in the sigmoid, which was not removed. Retroflexed examination showed internal hemorrhoids. There was sigmoid diverticulosis. The exam was limited due to old blood present in the colon. No other source for bleeding was identified. IMPRESSION: Post polypectomy bleeding. RECOMMENDATIONS: 1. Advanced diet. 2. Monitor hematocrit. MD ROMEL Mosher/VIANNEY / [id number]
--- NOTE | 2020-10-16 13:37 | HO.PM.IMPN ---
Subjective Subjective Date of Service: 10/16/20 Interval History: Seen in follow-up for GI bleed Continued to have bright red blood per rectum overnight Denies abdominal pain Plan colonoscopy today Review of Systems Review of Systems: Yes all other systems are reviewed and are negative Constitutional Constitutional: Denies chills and Denies fever(s) Cardiovascular Cardiovascular: Denies chest pain Respiratory Respiratory: Denies cough Gastrointestinal Gastrointestinal: Denies abdominal pain Physical Exam Vital Signs: Vital Signs: Last Vital Signs Temp 98 F 10/16/20 12:55 Pulse 54 10/16/20 12:55 Resp 16 10/16/20 12:55 BP 117/60 10/16/20 12:55 Pulse Ox 95 10/16/20 12:55 Body Mass Index 36.2 Const: Nutritional Appearance: well nourished Orientation/consciousness: patient oriented x3 HENMT: Head: Yes normocephalic and Yes atraumatic Eyes: Sclerae: sclerae normal Chest: Chest palpation & inspection: normal inspection of the chest Resp: Effort & Inspection: normal respiratory effort and no respiratory distress Auscultation: clear to auscultation bilaterally Cardio: Rate: regular rate Rhythm: regular rhythm GI: Palpation (GI): Soft to palpation and nontender Neuro: General: patient oriented x3 Cranial nerves: Yes CN's II-XII intact bilaterally and Yes Bilaterally intact EOM present Objective Data Current Medications Generic Name Dose Route Start Last Admin Trade Name Freq PRN Reason Stop Dose Admin Acetaminophen 650 mg 10/15/20 18:56 Acetaminophen 325 Mg Tablet PO Q6H PRN Pain, Mild (Pain Scale 1-3) Nicotine 21 mg 10/16/20 09:00 10/16/20 07:42 Nicotine 21 Mg Patch.Td24 TRANSDERMA 21 mg DAILY CHRISSY Administration Ondansetron HCl 4 mg 10/15/20 18:56 Ondansetron Hcl 4 Mg/2 Ml Vial IVPUSH Q8H PRN Nausea and Vomiting Sodium Chloride 3 ml 10/16/20 00:00 10/16/20 07:41 0.9 % Sodium Chloride Flush 3 Ml Syringe IVFLUSH Not Given QSHIFT [facility] Labs CBC & Chem 7: 10/16/20 05:23 10/15/20 10:15 Assessment and Plan (1) Acute GI bleeding: Status: Acute Assessment and Plan: This is a 60-year-old male with no significant past medical history who underwent a screening colonoscopy on 10/14/2020 and now returns the next day with bright red blood per rectum most likely consistent with bleeding from his polypectomy site. He will be admitted for further workup. 1. Acute blood loss anemia secondary to lower GI bleed symptomatic with dizziness In the setting of recent polypectomy Evaluated by GI repeat colonoscopy today showing no active bleeding. Polypectomy site injected with epinephrine and clips placed -will advance diet -follow CBC 2. Tobacco use disorder -NRT Tobacco cessation has been encouraged Full code DVT prophylaxis, mechanical due to GI bleed Attending-Dr. Haro
[2020-10-16] MEDS: 0.9 % Sodium Chloride Flush 3 ML SYRINGE IVFLUSH ×2 (18:03→20:24)
[2020-10-17 03:01] VITALS: BP 116/65; PULSE 62; RESP 18; TEMP 36.7; O2SAT 96
[2020-10-17 06:16] LABS: Hematocrit 31.8 % (42-52); Hemoglobin 10.7 g/dl (14.0-18.0); Mean Corpuscular HGB Conc 33.6 g/dl (31.0-36.0); Mean Corpuscular Volume 89.1 fL (80-98); Mean Platelet Volume 10.1 fL (9.4-12.4); Platelet Count 178 X10*3/uL (160-400); Red Blood Count 3.57 X10*6/uL (4.60-5.80); White Blood Count 7.6 X10*3/uL (4.8-10.8)
[2020-10-17 08:00] VITALS: BP 139/79; PULSE 55; RESP 18; TEMP 36.6; O2SAT 97
[2020-10-17] MEDS: 0.9 % Sodium Chloride Flush 3 ML SYRINGE IVFLUSH (08:11)
[2020-10-17] MEDS: Nicotine 21 MG PATCH.TD24 TRANSDERMA (08:11)
--- NOTE | 2020-10-17 09:24 | P.DS_ITS ---
DS: Providers Provider Date of Service: 10/17/20 <GARDENIA Bhatt - Last Filed: 10/17/20 09:31> 10/17/20 <Asif Haro MD - Last Filed: 10/20/20 08:16> Date of admission: 10/15/20 17:15 <GARDENIA Bhatt - Last Filed: 10/17/20 09:31> Primary care physician: GARDENIA Marquez <GARDENIA Bhatt - Last Filed: 10/17/20 09:31> Consults: 10/15/20 18:56 Consult to Gastroenterology Routine Consulting Provider: Juan Manuel Larsen Reason for consultation: gi bleed post colonoscopy Has provider been notified: Yes <GARDENIA Bhatt - Last Filed: 10/17/20 09:31> DS: Diagnosis Discharge Diagnosis (1) Acute GI bleeding: Status: Acute <GARDENIA Bhatt - Last Filed: 10/17/20 09:31> (2) Acute blood loss anemia: Status: Acute <GARDENIA Bhatt - Last Filed: 10/17/20 09:31> DS: Medications Discharge Medications Home Medications: Home Medications Medication Instructions Recorded Confirmed No Known Home Meds 10/08/20 10/15/20 <GARDENIA Bhatt - Last Filed: 10/17/20 09:31> DS: Summary Hospital Course Hospital Course: This is a 60-year-old male with no significant past medical history who underwent a screening colonoscopy on 10/14/2020 and now returns the next day with bright red blood per rectum most likely consistent with bleeding from his polypectomy site. He was seen by GI and underwent repeat colonoscopy 10/16. There was no active bleeding noted, but cecal polypectomy site did have a nonbleeding visible vessel, epinephrine injection and 5 clips were used to treat the polypectomy site. Good hemostasis was achieved. The other polypectomy sites were clear. Patient was observed overnight following repeat colonoscopy. He had no bleeding since procedure. His H/H has remained stable. He is tolerating a full diet is eager to return home. He is instructed to return to the emergency department if any further bleeding occurs. Attending Attestation: Patient seen and examined independently and I was present during hernandez portion of E/M service. Agree with GARDENIA Medel's history, physical, assessment, and plan. <GARDENIA Bhatt - Last Filed: 10/17/20 09:31> Time Spent with Patient Time attestation: Total time spent providing and/or coordinating discharge services: <GARDENIA Bhatt - Last Filed: 10/17/20 09:31> Discharge coordination time: Greater than 30 minutes <GARDENIA Bhatt - Last Filed: 10/17/20 09:31> Quality: Stroke Does the patient have a stroke diagnosis?: No <GARDENIA Bhatt - Last Filed: 10/17/20 09:31> Physical Exam Vital Signs: Vital Signs: Last Vital Signs Temp 97.9 F 10/17/20 08:00 Pulse 55 10/17/20 08:00 Resp 18 10/17/20 08:00 BP 139/79 10/17/20 08:00 Pulse Ox 97 10/17/20 08:00 Body Mass Index 36.2 <GARDENIA Bhatt - Last Filed: 10/17/20 09:31> Const: Nutritional Appearance: well nourished <GARDENIA Bhatt Last Filed: 10/17/20 09:31> Orientation/consciousness: patient oriented x3 <GARDENIA Bhatt - Last Filed: 10/17/20 09:31> HENMT: Head: Yes normocephalic and Yes atraumatic <GARDENIA Bhatt - Last Filed: 10/17/20 09:31> Eyes: Sclerae: sclerae normal <GARDENIA Bhatt - Last Filed: 10/17/20 09:31> Resp: Effort & Inspection: normal respiratory effort and no respiratory di stress <GARDENIA Bhatt Last Filed: 10/17/20 09:31> Cardio: Rate: regular rate <GARDENIA Bhatt - Last Filed: 10/17/20 09:31> Rhythm: regular rhythm <GARDENIA Bhatt Last Filed: 10/17/20 09:31> GI: Palpation (GI): Soft to palpation and nontender <GARDENIA Bhatt - Last Filed: 10/17/20 09:31> Neuro: General: patient oriented x3 <GARDENIA Bhatt - Last Filed: 10/17/20 09:31> Cranial nerves: Yes CN's II-XII intact bilaterally and Yes Bilaterally intact EOM present <GARDENIA Bhatt - Last Filed: 10/17/20 09:31> DS: Data Data Completed and Pending Labs on day of discharge: Laboratory Results - last 24 hr 10/17/20 05:38 WBC 7.6 RBC 3.57 L Hgb 10.7 L Hct 31.8 L MCV 89.1 MCH 30.0 MCHC 33.6 RDW 13.0 Plt Count 178 MPV 10.1 Absolute Nucleated RBC 0.000 Nucleated RBC % (auto) 0.0 <GARDENIA Bhatt - Last Filed: 10/17/20 09:31> Discharge Plan Discharge Patient Disposition: Home, Self-Care <GARDENIA Bhatt - Last Filed: 10/17/20 09:31> Discharge Diagnosis: acute blood loss anemia lower GI bleeding <GARDENIA Bhatt - Last Filed: 10/17/20 09:31> acute blood loss anemia lower GI bleeding <Asif Haro MD - Last Filed: 10/20/20 08:16> Referrals: Loco Quan PA [Primary Care Provider] - 1 Week <GARDENIA Bhatt - Last Filed: 10/17/20 09:31> Discharge Medications: No Action No Known Home Meds RF: 0 <GARDENIA Bhatt - Last Filed: 10/17/20 09:31> Discharge Orders: Discharge Order (Routine); Ordered 10/17/20 Ordered By: Ilda Lassiter <GARDENIA Bhatt - Last Filed: 10/17/20 09:31> Activity on Discharge: As tolerated <GARDENIA Bhatt - Last Filed: 10/17/20 09:31> As tolerated <Asif Haro MD - Last Filed: 10/20/20 08:16> Stand Alone Forms: Patient Portal Discharge page <GARDENIA Bhatt - Last Filed: 10/17/20 09:31> Care Plan Goals: see below <GARDENIA Bhatt - Last Filed: 10/17/20 09:31> Health Concerns: GI Bleeding. Resolved. <GARDENIA Bhatt - Last Filed: 10/17/20 09:31> Plan of Treatment: Your hemoglobin & hematocrit have remained stable. Please return to ER if you have any further episodes of bleeding. Please call to schedule a follow up appointment with PCP <GARDENIA Bhatt - Last Filed: 10/17/20 09:31> Assessment: See discharge summary <GARDENIA Bhatt - Last Filed: 10/17/20 09:31> Discharge Date/Time: 10/17/20 10:56 <GARDENIA Bhatt - Last Filed: 10/17/20 09:31>
--- NOTE | 2020-10-17 09:37 | MHC.CM.PN ---
patient dcd homw no skilled services ordered by
--- NOTE | 2020-10-17 09:44 | HO.POSTANES ---
Post Anesthesia Evaluation Post Anesthesia Evaluation Vital Signs: Vital Signs Temp Pulse Resp BP Pulse Ox 10/17/20 08:00 97.9 F 55 18 139/79 97 10/17/20 03:01 98.1 F 62 18 116/65 96 10/16/20 23:45 97.8 F 62 18 105/68 95 Anesthesia: Monitored Mental Status: Awake Pain Control: Satisfactory Nausea/Vomiting: None Hydration: Adequate Anesthesia-Related Issues: No Anes. Related Issues
== END 2020-10-17 10:56 | disposition home or self-care (01) | DRG 919 ==
LOC: HO.ED 16:17 → HO.EDOVER 17:24 → HO.IMC 19:42
PROVIDERS: Internal Medicine Gastroenterology; Physician Assistant Medical; Admitting Provider Family Medicine; Emergency Provider Emergency Medicine Emergency Medical Services; PCP Physician Assistant Medical; Visit Provider Family Medicine
PROC: 0DJD8ZZ Inspection of Lower Intestinal Tract, Via Natural or Artificial Opening Endoscopic (ICD-10-PCS; CPT 45378; principal; 2020-10-16 11:30)
DX: K91.840 Postprocedural hemorrhage of a digestive system organ or structure following a digestive system procedure (principal); K57.31 Diverticulosis of large intestine without perforation or abscess with bleeding; D62 Acute posthemorrhagic anemia; F17.210 Nicotine dependence, cigarettes, uncomplicated; Z71.6 Tobacco abuse counseling; K64.8 Other hemorrhoids; Z20.822 Contact with and (suspected) exposure to COVID-19
CPT/HCPCS: 36415; 74178; 80053; 80076; 82272; 83735; 85014; 85018; 85025; 85027; 85610; 85730; 86850; 86900; 86901; 87635; 93005; 99285; J0171; Q9967

== ENCOUNTER 2021-04-19 14:51 | Emergency (ER) | payer OTHER, SELFPAY ==
--- NOTE | ~2021-04-19 | CT_ITS ---
EXAMINATION: CT ABDOMEN AND PELVIS WITHOUT CONTRAST CLINICAL INFORMATION: Severe right flank pain with nausea, vomiting and hematuria COMPARISON: CT abdomen and pelvis 10/15/2020 TECHNIQUE: Multidetector volumetric imaging was performed from the superior aspect of the liver through the pubic symphysis. Sagittal and coronal reformatted images were obtained on the technologist's workstation. This CT examination was performed using dose optimization techniques as appropriate, variously including the following: *Automated exposure control *Adjustment of mA and/or kV according to patient size (this includes techniques or standardized protocols for targeted exams where dose is matched to indication/reason for exam; i.e. extremities or head) *Use of iterative reconstruction technique DLP: 816 mGy-cm FINDINGS: LUNG BASES: The visualized lung bases are unremarkable. Some minimal bibasilar atelectasis is present. LIVER, GALLBLADDER, AND BILIARY TREE: The liver is enlarged measuring 21 cm in greatest length and demonstrates mild decreased attenuation suggestive of hepatic steatosis. There is a suggestion of some mild nodularity of the liver border with some hypertrophy of the caudate lobe. These findings suggest cirrhosis.. No focal hepatic lesion or biliary ductal dilatation is present. Status post cholecystectomy PANCREAS: Unremarkable. SPLEEN: Spleen is mildly enlarged at 13.8 cm. ADRENAL GLANDS: Unremarkable. KIDNEYS AND URETERS: There is an obstructing distal right ureteral stone present measuring 4 mm in size with dilatation of the right ureter and mild to moderate pelvocaliectasis. There is at least one additional intrarenal nonobstructing calculus present measuring 4 mm as well. Because of the small size, Hounsfield units are not accurate but measurements as high as 330 are obtained for the intrarenal calculus. The distal ureteral calculus measures 390 Hounsfield units. The left kidney appears normal without stones. The left ureter appears normal. BLADDER: Unremarkable. GASTROINTESTINAL TRACT: The small and large bowel are unremarkable. The appendix is unremarkable. ABDOMINAL WALL: No significant hernia is appreciated. There has been abdominal wall surgery/hernia repair LYMPH NODES: No retroperitoneal lymphadenopathy VASCULAR: Calcific atherosclerotic changes are present in the aorta and there is a infrarenal 3.6 cm aneurysm present. On the 10/15/2020 study this measured 3.4 cm. PELVIC VISCERA: There is mild BPH OSSEOUS STRUCTURES: Degenerative changes noted throughout the spine most marked at L5-S1. CT/CT abdomen pelvis wo con IMPRESSION: 1. 4 mm right distal ureteral obstructing calculus. 2. 4 mm nonobstructing intrarenal right calculus 3. AAA has increased from 3.4 cm to 3.6 cm segment of 2020 4. Incidentally noted hepatomegaly with nodularity and splenomegaly suggestive of cirrhosis and portal hypertension. Appearances are similar to 10/15/2020 study. Fleischner guidelines were followed.
[2021-04-19 15:36] VITALS: BP 175/110; PULSE 64; RESP 18; TEMP 36.9; O2SAT 97; BMI 34.8
[2021-04-19] MEDS: Ondansetron ODT 4 MG TAB.RAPDIS TRANSLINGU (15:42)
[2021-04-19 16:30] LABS: MANUAL DIFF FLAG NO
[2021-04-19 16:33] LABS: Basophils Percent Auto 0.3 % (0-2); Eosinophils Absolute Auto 0.1 X10*3/uL (0.0-0.4); Eosinophils Percent Auto 0.7 % (0-4); Hematocrit 47.7 % (42.0-52.0); Hemoglobin 15.8 g/dl (14.0-18.0); Imm Gran Abs Auto 0.04 X10*3/uL (0.00-0.03); Imm Gran Pct Auto 0.3 % (0.0-0.4); Lymphocytes Absolute Auto 1.3 X10*3/uL (1.2-4.9); Lymphocytes Percent Auto 9.9 % (20-40); Mean Corpuscular HGB Conc 33.1 g/dl (31.0-36.0); Mean Corpuscular Volume 84.6 fL (80.0-98.0); Mean Platelet Volume 9.4 fL (9.4-12.4); Monocytes Absolute Auto 1.2 X10*3/uL (0.1-1.2); Monocytes Percent Auto 9.2 % (2-11); Neutrophils Absolute Auto 10.4 x10*3/uL (2.0-8.3); Neutrophils Percent Auto 79.6 % (45-73); Platelet Count 228 X10*3/uL (160-400); Red Blood Count 5.64 X10*6/uL (4.60-5.80); Red Cell Distribution Width 15.7 % (11.0-16.0)
[2021-04-19 16:34] LABS: Appearance Urine CLEAR; Color Urine YELLOW; Glucose Urine UA NEG (NEG); Leukocyte Esterase Urine NEG (NEG); Nitrite Urine NEG (NEG); Specific Gravity - Urine >= 1.030 (1.005-1.025); UACC Culture Trigger NO; Urine Blood 2+ (NEG); Urine Ketones NEG (NEG); Urine Protein NEG (NEG-TRACE)
[2021-04-19 17:00] LABS: Squamous Epithelial Cell Urine TRACE /LPF; WBC Urine 0-2 /HPF (0-4)
[2021-04-19 17:02] LABS: Alanine Aminotransferase 26 U/L (0-40); Albumin Level 4.6 g/dL (3.5-5.0); Alkaline Phosphatase 78 U/L (39-117); Anion Gap 14 (12-20); Aspartate Amino Transferase 31 U/L (5-37); Bilirubin Direct 0.4 mg/dL (0.0-0.5); Bilirubin Total 1.1 mg/dL (0.0-1.0); Blood Urea Nitrogen 12 mg/dL (9-16); Calcium 9.9 mg/dL (8.4-10.2); Carbon Dioxide 27 mmol/L (22-29); Chloride 101 mmol/L (96-108); Creatinine Clr Calc Pharmacy 76.6; Estimated Glomerular Filt Rate 57; Glucose Random 108 mg/dL (60-115); Lipase 25 U/L (8-78); Potassium 4.2 mmol/L (3.3-5.1); Sodium 138 mmol/L (135-145); Total Protein 7.7 g/dL (6.5-8.0)
--- NOTE | 2021-04-19 18:34 | ED_ITS ---
HPI - Abdominal Pain General Chief Complaint: Abdominal Pain Stated Complaint: rt side abd pain Time Seen by Provider: 04/19/21 18:28 Source: patient Mode of arrival: ambulatory Limitations: no limitations History of Present Illness HPI narrative: 60 yo male with history of hypertension not on any medications, fatty liver, GI bleed in the past who presents to the ER with intermittent flank pain for the last 6 weeks. He states when the pain comes on it is severe in the that same location and his right lower abdomen and radiates to his right side. It started 6 weeks ago when he was at work, lasted about an hour and then went away. It happened a couple of weeks ago again however this time lasted about 4 hours before resolving. He states about 3 days ago he had worsening of the pain and it did not go way, it has been steady. He states he has been having trouble urinating but denies any urgency, hesitancy, frequency, hematuria. His urine is darker than it usually is. He was nauseous and vomited in triage. He has had no fevers at home but new onset of chills. MD elicited complaint: flank pain Pertinent past history: none Onset (ago): week(s) Pain Consistency: intermittent Location: R flank Severity: severe Pain scale (0-10): 8 Quality: sharp Radiation: RLQ Migration to: no migration Exacerbating factors: movement Relieving factors: rest Context: history of similar episodes Associated symptoms: nausea and vomiting Related Data Previous Rx's Medication Instructions Recorded hydrocodone 5 mg-acetaminophen 325 1 tab PO Q4-6H PRN #8 tab 04/19/21 mg tablet ibuprofen 600 mg tablet 600 mg PO Q8H PRN #14 tab 04/19/21 prednisone 50 mg tablet 50 mg PO DAILY #5 tab 04/19/21 tamsulosin 0.4 mg capsule (Flomax) 0.4 mg PO DAILY #7 cap 04/19/21 Allergies Allergy/AdvReac Type Severity Reaction Status Date / Time No Known Allergies Allergy Verified 04/19/21 15:36 Review of Systems Review of Systems Constitutional: No Fever, No Chills ENT/Mouth: No sore throat, No Rhinorrhea, No Swallowing Difficulty Cardiovascular: No Chest Pain, No SOB Respiratory: No Cough, No Sputum Gastrointestinal: + Nausea, + Vomiting, No Diarrhea, + abdominal Pain, No Hematochezia, No Melena Genitourinary: No Dysuria, No Urinary Frequency, No Hematuria, +urinary hesitancy Musculoskeletal: No joint pain, No Myalgias Skin: No Skin Lesions, No rash Neuro: No Weakness, No Numbness, No Dizziness, No Headache Psych: No Anxiety/Panic, No Depression Heme/Lymph: No Bruising, No Lymphadenopathy Endocrine: No Polyuria, No Polydipsia Physical Exam Vital Signs: Vital Signs: Last Vital Signs Temp 98.5 F 04/19/21 15:36 Pulse 64 04/19/21 15:36 Resp 18 04/19/21 15:36 BP 175/110 H 04/19/21 15:36 Pulse Ox 97 04/19/21 15:36 Body Mass Index 34.8 Appearance: Alert. Oriented X3. Appears uncomfortable. Eyes: Pupils equal, round and reactive to light. ENT: Pharynx normal. Neck: Normal inspection. Neck supple. CVS: Normal heart rate and rhythm. Pulses normal. Respiratory: No respiratory distress. Breath sounds normal. Abdomen: Soft with mild tenderness in the distal right lower quadrant with normal +BS x4. +CVA tenderness on the right Skin: Skin warm and dry. Normal skin color. Normal skin turgor. No rashes. Extremities: No lower extremity edema. Neuro: Oriented X 3. No motor deficit. No sensory deficit. Course Course Course Narrative: 60-year-old male presenting with intermittent, severe right flank pain that is an on and off for the last few weeks. It has been now steady for the last 3 days. He had nausea an acute episode of vomiting today. He reports dark urine but denies hematuria. No fevers. Concern is for kidney stone, less likely appendicitis. Less likely cholecystitis. Will get lab workup and CT scan for further evaluation. Reevaluation(s) Reevaluation #1: Labs show mild leukocytosis likely this is reactive from acute episode of vomiting. He has had no fevers. His urinalysis showed no evidence of infection there is microscopic hematuria. His renal function is normal. LFTs are within normal limits. CT scan of the abdomen showed a 4 mm obstructing kidney stone in the distal ureter with moderate hydronephrosis. Given the size he most likely will pass this on his own. He reports improvement in his symptoms after Toradol and IV fluids. He is sleeping comfortably upon reexamination. At this time will plan to start steroids and Flomax and have him follow-up with Dr. Saini in the office. He was instructed to come back to the ER if any of his symptoms worsen as he may need intervention if the stone does not pass on its own. MDM - Abdominal Pain Lab Data Result diagrams: 04/19/21 16:19 04/19/21 16:19 Labs: Lab Results 04/19/21 04/19/21 04/19/21 Range/Units 15:57 16:19 16:19 WBC 13.0 H (4.8-10.8) X10*3/uL RBC 5.64 (4.60-5.80) X10*6/uL Hgb 15.8 (14.0-18.0) g/dl Hct 47.7 (42.0-52.0) % MCV 84.6 (80.0-98.0) fL MCH 28.0 (27.0-33.0) pg MCHC 33.1 (31.0-36.0) g/dl RDW 15.7 (11.0-16.0) % Plt Count 228 (160-400) X10*3/uL MPV 9.4 (9.4-12.4) fL Immature Gran % (Auto) 0.3 (0.0-0.4) % Neut % (Auto) 79.6 H (45-73) % Lymph % (Auto) 9.9 L (20-40) % [place] % (Auto) 9.2 (2-11) % Eos % (Auto) 0.7 (0-4) % Baso % (Auto) 0.3 (0-2) % Lymph # (Auto) 1.3 (1.2-4.9) X10*3/uL [place] # (Auto) 1.2 (0.1-1.2) X10*3/uL Eos # (Auto) 0.1 (0.0-0.4) X10*3/uL Baso # (Auto) 0.0 (0.0-0.2) X10*3/uL Abs Immat Gran (auto) 0.04 H (0.00-0.03) X10*3/uL Absolute Neuts (auto) 10.4 H (2.0-8.3) x10*3/uL Absolute Nucleated RBC 0.000 (0.0-0.012) X10*3/uL Nucleated RBC % (auto) 0.0 (0.0-0.2) /100WBC Sodium 138 (135-145) mmol/L Potassium 4.2 (3.3-5.1) mmol/L Chloride 101 (96-108) mmol/L Carbon Dioxide 27 (22-29) mmol/L Anion Gap 14 (12-20) BUN 12 (9-16) mg/dL Creatinine 1.28 (0.5-1.4) mg/dL Estim Creat Clear Calc 76.6 Estimated GFR 57 Random Glucose 108 (60-115) mg/dL Calcium 9.9 (8.4-10.2) mg/dL Total Bilirubin 1.1 H (0.0-1.0) mg/dL Direct Bilirubin 0.4 (0.0-0.5) mg/dL AST 31 (5-37) U/L ALT 26 (0-40) U/L Alkaline Phosphatase 78 (39-117) U/L Total Protein 7.7 (6.5-8.0) g/dL Albumin 4.6 (3.5-5.0) g/dL Lipase 25 (8-78) U/L Urine Color YELLOW Urine Appearance CLEAR Urine pH 6.0 (5.0-8.0) Ur Specific [place] >= 1.030 H (1.005-1.025) Urine Protein NEG (NEG-TRACE) MG/DL Urine Glucose (UA) NEG (NEG) MG/DL Urine Ketones NEG (NEG) MG/DL Urine Blood 2+ H (NEG) Urine Nitrite NEG (NEG) Ur Leukocyte Esterase NEG (NEG) Urine RBC 10-14 H (0) /HPF Urine WBC 0-2 (0-4) /HPF Ur Squamous Epith Cells TRACE /LPF Urine Bacteria NONE /LPF Discharge Plan Discharge Clinical Impression: Hydronephrosis with obstructing calculus Patient Disposition: Home, Self-Care Instructions: Hydronephrosis (ED), Ureteral Stones (ED) Additional Instructions: Your CT scan shows a 4 mm kidney stone at the end of your right ureter - you will most likely pass this on your own. Recommend increasing your fluid intake, drink plenty of water. Take the prescribed medications as directed. Recommend following up with Urology this week. If you develop worsening pain, profuse vomiting or any other concerning symptoms call 911 or come back To the ER for further evaluation Prescriptions: New prednisone 50 mg tablet 50 mg PO DAILY Qty: 5 RF: 0 tamsulosin [Flomax] 0.4 mg capsule 0.4 mg PO DAILY Qty: 7 RF: 0 hydrocodone-acetaminophen 5-325 mg tablet 1 tab PO Q4-6H PRN (Reason: pain) Qty: 8 RF: 0 ibuprofen 600 mg tablet 600 mg PO Q8H PRN (Reason: pain) Qty: 14 RF: 0 Referrals: Mumtaz Saini MD [Physician] - 3 days ( 4 mm obstructing distal ureteral stone with moderate hydro) [facility] Past Medical History Attestation statement: The following information was validated with the patient. Medical History Fatty liver HTN (hypertension) Surgical History History of umbilical hernia repair Hx laparoscopic cholecystectomy Hx of colonoscopy Social History Social History Are you a primary child care attendant to a significant other at home: No Do you presently have visiting nurse or other home services: No Alcohol intake: never Cigarette Packs Per Day: 0.75 Cigarettes Per Day: 15.0 Advance Directives: No Advance Directives Information Provided: No service: Yes Current occupational status: employed
[2021-04-19] MEDS: Ketorolac Tromethamine 15 MG/ML VIAL 30 MG IVPUSH (18:59)
[2021-04-19] MEDS: 0.9 % Sodium Chloride 1,000 ML 999 ML IVCONT (18:59)
[2021-04-19] MEDS: Tamsulosin HCL 0.4 MG CAPSULE PO (20:53)
[2021-04-19] MEDS: predniSONE 10 MG TABLET 50 MG PO (21:02)
== END 2021-04-19 21:07 | disposition home or self-care (01) ==
PROVIDERS: Emergency Provider Emergency Medicine; PCP Physician Assistant Medical
DX: N13.2 Hydronephrosis with renal and ureteral calculous obstruction (principal); R10.31 Right lower quadrant pain; F17.210 Nicotine dependence, cigarettes, uncomplicated; Z79.899 Other long term (current) drug therapy; Z71.6 Tobacco abuse counseling
CPT/HCPCS: 36415; 74176; 80048; 80076; 81001; 83690; 85025; 96361; 96374; 99284; J1885